=== PATIENT | female | born 1945 | race African-American/Black ===

== ENCOUNTER 2016-04-07 14:51 | Inpatient (IN) | payer MEDICARE, MEDICAID ==
[~2016-04-07] VITALS: Ht 167.6 cm; Wt 94.3 kg
[2016-04-07] MEDS ORDERED: SODIUM CHLORIDE 0.9% 500 ML IV ONE (15:29)
[2016-04-07 16:14] LABS: BASOPHILS % 0.2 % (0.0-2.0); EOSINOPHILS % 0.6 % (0.0-5.0); HEMATOCRIT. 40.1 % (36.0-48.0); HEMOGLOBIN. 13.2 g/dL (12.0-16.0); LYMPHOCYTES % 11.3 % (20.0-50.0); MEAN CORPUSCULAR HEMOGLOBIN 29.3 pg (28.0-32.0); MEAN CORPUSCULAR HGB CONC 32.8 g/dL (31.0-37.0); MEAN CORPUSCULAR VOLUME 89.5 fL (81.0-99.0); MEAN PLATELET VOLUME 9.9 fl (7.4-10.4); MONOCYTES % 7.3 % (2.0-8.0); NEUTROPHILS % 80.6 % (40.0-76.0); PLATELET 217 x1000/uL (130-400); RED BLOOD CELL COUNT 4.48 mill/uL (4.2-5.4); RED CELL DISTRIBUTION WIDTH 16.2 % (11.6-14.6); WHITE BLOOD COUNT 8.4 x1000/uL (4.5-11.0)
[2016-04-07 16:26] LABS: ALBUMIN 3.1 g/dL (3.4-5.0); ANION GAP 11; CALCIUM 9.3 mg/dL (8.5-10.1); CARBON DIOXIDE 23 mEq/L (21-32); CHLORIDE 105 mEq/L (98-107); ETHANOL BLOOD < 10 mg/dL; INDEX HEMOLYSI 3 (1-3); INDEX ICTERIC 1 (1-4); INDEX LIPEMIC 1 (1-3); UREA NITROGEN BLOOD 35 mg/dL (7-21)
[2016-04-07 16:32] LABS: eGFR 34 mL/min (>60)
[2016-04-07 16:33] LABS: ALANINE AMINOTRANSFERASE 24 IU/L (13-61); CREATINE KINASE MB FRACTION 1.3 ng/mL (0.5-3.6); NT PRO B-TYPE NATRIURETIC PEP 1016 pg/mL (5-125); TROPONIN I < 0.02 ng/mL (0.00-0.04)
[2016-04-07 16:43] LABS: INR 1.2; PROTHROMBIN TIME 12.8 sec
[2016-04-07] MEDS ORDERED: FUROSEMIDE 20MG/2ML VIAL IVP ONE (18:30)
[2016-04-07] MEDS ORDERED: LORAZEPAM 2MG/ML CPJ IV PRN (22:00)
[2016-04-07] MEDS ORDERED: IPRATROPIUM/ALBUTEROL 0.5-3(2.5)MG/3ML NEB INH PRN (22:00)
[2016-04-07] MEDS ORDERED: NA PHOS,M-B/NA PHOS,DI-BA ENEMA 118ML PR PRN (22:00)
[2016-04-07] MEDS ORDERED: HYDROCODONE/ACETAMINOPHEN 5/325MG TABLET PO PRN (22:00)
[2016-04-07] MEDS ORDERED: HYDROMORPHONE HCL/PF 2MG/ML CPJ IV PRN (22:00)
[2016-04-07] MEDS ORDERED: ENOXAPARIN 40MG/0.4ML SYR SUBCUT SCH (22:00)
[2016-04-07] MEDS ORDERED: ACETAMINOPHEN 325MG TABLET PO PRN (22:00)
[2016-04-07] MEDS ORDERED: MAGNESIUM/ALUMINUM HYDROXIDE/SIMETHICONE 30ML UDC PO PRN (22:00)
[2016-04-07] MEDS ORDERED: CLONIDINE 0.1MG TABLET PO PRN (22:00)
[2016-04-07] MEDS ORDERED: GUAIFENESIN 200MG/10ML SUGAR FREE UDC PO PRN (22:00)
[2016-04-07 23:07] LABS: CALCIUM 9.1 mg/dL (8.5-10.1)
[2016-04-07 23:33] VITALS: BP 112/73
[2016-04-08] MEDS ORDERED: ENOXAPARIN 30MG/0.3ML SYR SUBCUT SCH
[2016-04-08] MEDS ORDERED: INDA1.255 PO
[2016-04-08] MEDS ORDERED: DILTIAZEM (00:09)
[2016-04-08] MEDS ORDERED: ALDACTONE (00:09)
[2016-04-08] MEDS ORDERED: METOPROLOL (00:09)
[2016-04-08] MEDS ORDERED: ALLO100T PO (00:09)
[2016-04-08] MEDS ORDERED: ROBITUSSIN (00:09)
[2016-04-08] MEDS ORDERED: AMIODORONE (00:09)
[2016-04-08] MEDS ORDERED: CILO100T PO (00:09)
[2016-04-08] MEDS ORDERED: [UNRECOGNIZED DRUG - OTHER] (00:09)
[2016-04-08] MEDS ORDERED: LETROZOLE (00:09)
[2016-04-08] MEDS ORDERED: PANT40TA4 PO (00:11)
[2016-04-08] MEDS ORDERED: ALD50 PO (00:46)
[2016-04-08] MEDS ORDERED: METO25TA6 PO (00:50)
[2016-04-08] MEDS ORDERED: GUAI120015 PO (00:50)
[2016-04-08] MEDS ORDERED: ZOLPIDEM TARTRATE 5MG TABLET PO PRN (01:15)
[2016-04-08 04:00] VITALS: BP 124/78
[2016-04-08 06:18] LABS: BASOPHILS % 0.5 % (0.0-2.0); HEMATOCRIT. 39.1 % (36.0-48.0); HEMOGLOBIN. 12.9 g/dL (12.0-16.0); LYMPHOCYTES % 20.4 % (20.0-50.0); MEAN CORPUSCULAR HEMOGLOBIN 29.6 pg (28.0-32.0); MEAN CORPUSCULAR HGB CONC 32.9 g/dL (31.0-37.0); MEAN PLATELET VOLUME 10.3 fl (7.4-10.4); MONOCYTES % 10.2 % (2.0-8.0); NEUTROPHILS % 67.9 % (40.0-76.0); PLATELET 263 x1000/uL (130-400); RED BLOOD CELL COUNT 4.35 mill/uL (4.2-5.4); RED CELL DISTRIBUTION WIDTH 16.1 % (11.6-14.6)
[2016-04-08 06:48] LABS: ANION GAP 13; CALCIUM 9.2 mg/dL (8.5-10.1); CARBON DIOXIDE 27 mEq/L (21-32); CHLORIDE 104 mEq/L (98-107); INDEX HEMOLYSI 1 (1-3); INDEX ICTERIC 1 (1-4); INDEX LIPEMIC 1 (1-3); TRIGLYCERIDE 47 mg/dL (0-150); UREA NITROGEN BLOOD 32 mg/dL (7-21)
[2016-04-08 06:55] LABS: ALANINE AMINOTRANSFERASE 21 IU/L (13-61); HDL CHOLESTEROL 54 mg/dL (40-59); LDL CHOLESTEROL 118 mg/dL (5-100); T4 FREE 1.49 ng/dL (0.76-1.46); TROPONIN I < 0.02 ng/mL (0.00-0.04); eGFR 36 mL/min (>60)
[2016-04-08 08:00] VITALS: BP 125/74
[2016-04-08] MEDS: SPIRONOLACTONE 50MG TABLET PO SCH (08:43)
[2016-04-08] MEDS: PANTOPRAZOLE 40MG DR TABLET PO SCH (08:45)
[2016-04-08] MEDS: CILOSTAZOL 100MG TABLET PO SCH (08:45)
[2016-04-08] MEDS: METOPROLOL TARTRATE 25MG TABLET PO SCH (08:46)
[2016-04-08] MEDS: ALLOPURINOL 100 MG TABLET PO SCH ×2 (08:46→17:44)
[2016-04-08] MEDS: ASPIRIN 81MG EC TABLET PO SCH (08:47)
[2016-04-08] MEDS: INDAPAMIDE 1.25MG TABLET PO SCH (09:00)
[2016-04-08] MEDS ORDERED: GUAIFENESIN 600MG ER TABLET PO SCH (09:00)
[2016-04-08 12:00] VITALS: BP 111/62
[2016-04-08 16:00] VITALS: BP 110/62
[2016-04-08] MEDS: RIVAROXABAN 15 MG TABLET PO SCH (16:50)
[2016-04-08] MEDS: LISINOPRIL 5MG TABLET PO SCH (16:50)
[2016-04-08 20:00] VITALS: BP 112/59
[2016-04-09] VITALS (22 sets, daily range): BP systolic 87–145; BP diastolic 50–116
[2016-04-09] MEDS: LEVOTHYROXINE SODIUM 50MCG TABLET PO SCH (05:52)
[2016-04-09] MEDS ORDERED: SODIUM CHLORIDE 0.9% 100 ML IV SCH ×2 (08:42→09:00)
[2016-04-09] MEDS: INDAPAMIDE 1.25MG TABLET PO SCH ×2 (09:00→12:54)
[2016-04-09] MEDS: LISINOPRIL 5MG TABLET PO SCH ×2 (09:00→16:30)
[2016-04-09] MEDS: METOPROLOL TARTRATE 25MG TABLET PO SCH (09:00)
[2016-04-09] MEDS: SPIRONOLACTONE 50MG TABLET PO SCH (09:00)
[2016-04-09] MEDS: AMIODARONE HCL 200 MG TABLET PO SCH ×2 (09:00→09:49)
[2016-04-09] MEDS ORDERED: AMIODARONE HCL 150 MG in DEXT 5% WATER 100 ML IV ONE (09:15)
[2016-04-09] MEDS: ASPIRIN 81MG EC TABLET PO SCH (09:29)
[2016-04-09] MEDS: PANTOPRAZOLE 40MG DR TABLET PO SCH (09:29)
[2016-04-09] MEDS: ALLOPURINOL 100 MG TABLET PO SCH ×2 (09:29→16:30)
[2016-04-09] MEDS: CILOSTAZOL 100MG TABLET PO SCH (09:29)
[2016-04-09] MEDS ORDERED: DIGOXIN 500MCG/2ML AMP IV NR ×3 (10:30→19:00)
[2016-04-09] MEDS: SODIUM CHLORIDE 0.9% 1,000 ML IV SCH (11:00)
[2016-04-09] MEDS ORDERED: AMIODARONE HCL 900 MG in DEXT 5% WATER 500 ML IV SCH (16:00)
[2016-04-10] VITALS (21 sets, daily range): BP systolic 97–149; BP diastolic 33–79
[2016-04-10] MEDS: DIPHENHYDRAMINE 50MG/ML VIAL IV PRN ×2 (03:24→09:58)
[2016-04-10 06:30] LABS: BASOPHILS % 0.4 % (0.0-2.0); HEMATOCRIT. 40.2 % (36.0-48.0); HEMOGLOBIN. 13.2 g/dL (12.0-16.0); LYMPHOCYTES % 15.2 % (20.0-50.0); MEAN CORPUSCULAR HEMOGLOBIN 29.7 pg (28.0-32.0); MEAN CORPUSCULAR HGB CONC 32.9 g/dL (31.0-37.0); MEAN CORPUSCULAR VOLUME 90.3 fL (81.0-99.0); MONOCYTES % 10.9 % (2.0-8.0); NEUTROPHILS % 72.5 % (40.0-76.0); PLATELET 238 x1000/uL (130-400); RED BLOOD CELL COUNT 4.46 mill/uL (4.2-5.4); RED CELL DISTRIBUTION WIDTH 16.1 % (11.6-14.6); WHITE BLOOD COUNT 6.8 x1000/uL (4.5-11.0)
[2016-04-10] MEDS: LISINOPRIL 5MG TABLET PO SCH ×2 (09:00→17:43)
[2016-04-10] MEDS: LEVOTHYROXINE SODIUM 50MCG TABLET PO SCH (09:26)
[2016-04-10] MEDS: ALLOPURINOL 100 MG TABLET PO SCH ×2 (09:26→17:42)
[2016-04-10] MEDS: ASPIRIN 81MG EC TABLET PO SCH (09:26)
[2016-04-10] MEDS: FAMOTIDINE 20MG TABLET PO SCH (09:27)
[2016-04-10] MEDS: SPIRONOLACTONE 50MG TABLET PO SCH (09:27)
[2016-04-10] MEDS: METOPROLOL TARTRATE 25MG TABLET PO SCH (09:28)
[2016-04-10] MEDS: DOCUSATE SODIUM 100MG CAPSULE PO PRN ×2 (09:28→17:41)
[2016-04-10] MEDS: CILOSTAZOL 100MG TABLET PO SCH (09:29)
[2016-04-10] MEDS: CARVEDILOL 12.5MG TABLET PO SCH ×2 (11:45→20:23)
[2016-04-10] MEDS: SOTALOL HCL 80MG TABLET PO SCH ×2 (11:46→21:00)
[2016-04-10] MEDS: SODIUM CHLORIDE 0.9% 1,000 ML IV SCH ×2 (11:48→11:53)
[2016-04-10] MEDS ORDERED: PROMETHAZINE HCL 25MG SUPP PR PRN (13:30)
[2016-04-10 14:31] LABS: MAGNESIUM 1.9 mg/dL (1.8-2.4)
[2016-04-10] MEDS: PROMETHAZINE HCL 25MG TABLET PO PRN (17:42)
[2016-04-10] MEDS: RIVAROXABAN 15 MG TABLET PO SCH (17:42)
[2016-04-11] VITALS (12 sets, daily range): BP systolic 110–137; BP diastolic 40–81
[2016-04-11] MEDS: SODIUM CHLORIDE 0.9% 1,000 ML IV SCH ×2 (01:07→15:32)
[2016-04-11] MEDS: LEVOTHYROXINE SODIUM 50MCG TABLET PO SCH (06:08)
[2016-04-11] MEDS: FAMOTIDINE 20MG TABLET PO SCH (08:28)
[2016-04-11] MEDS: CILOSTAZOL 100MG TABLET PO SCH (08:28)
[2016-04-11] MEDS: ASPIRIN 81MG EC TABLET PO SCH (08:28)
[2016-04-11] MEDS: SPIRONOLACTONE 50MG TABLET PO SCH (08:28)
[2016-04-11] MEDS: ALLOPURINOL 100 MG TABLET PO SCH ×2 (08:28→17:31)
[2016-04-11] MEDS: INDAPAMIDE 1.25MG TABLET PO SCH ×3 (08:28→09:00)
[2016-04-11] MEDS: CARVEDILOL 12.5MG TABLET PO SCH ×2 (08:29→20:34)
[2016-04-11] MEDS: SOTALOL HCL 80MG TABLET PO SCH ×3 (08:29→20:33)
[2016-04-11] MEDS: LISINOPRIL 5MG TABLET PO SCH ×2 (08:29→17:31)
[2016-04-11] MEDS: PROMETHAZINE HCL 25MG TABLET PO PRN (11:18)
[2016-04-11] MEDS ORDERED: MAGNESIUM 2 G PREMIX 50 ML IV SCH (13:00)
[2016-04-11] MEDS: RIVAROXABAN 15 MG TABLET PO SCH (17:31)
[2016-04-11 17:46] LABS: CALCIUM 8.7 mg/dL (8.5-10.1); MAGNESIUM 2.4 mg/dL (1.8-2.4)
[2016-04-12] VITALS (12 sets, daily range): BP systolic 106–148; BP diastolic 46–79
[2016-04-12] MEDS: SODIUM CHLORIDE 0.9% 1,000 ML IV SCH ×2 (05:52→18:00)
[2016-04-12] MEDS: LEVOTHYROXINE SODIUM 50MCG TABLET PO SCH (05:58)
[2016-04-12 06:24] LABS: BASOPHILS % 0.7 % (0.0-2.0); EOSINOPHILS % 3.1 % (0.0-5.0); HEMOGLOBIN. 12.3 g/dL (12.0-16.0); LYMPHOCYTES % 19.2 % (20.0-50.0); MEAN CORPUSCULAR HEMOGLOBIN 29.9 pg (28.0-32.0); MEAN CORPUSCULAR HGB CONC 33.1 g/dL (31.0-37.0); MEAN CORPUSCULAR VOLUME 90.1 fL (81.0-99.0); MEAN PLATELET VOLUME 10.1 fl (7.4-10.4); MONOCYTES % 12.9 % (2.0-8.0); NEUTROPHILS % 64.1 % (40.0-76.0); PLATELET 233 x1000/uL (130-400); RED BLOOD CELL COUNT 4.11 mill/uL (4.2-5.4); RED CELL DISTRIBUTION WIDTH 16.4 % (11.6-14.6)
[2016-04-12 06:36] LABS: CALCIUM 8.5 mg/dL (8.5-10.1)
[2016-04-12] MEDS: DOCUSATE SODIUM 100MG CAPSULE PO PRN (08:12)
[2016-04-12] MEDS: SOTALOL HCL 80MG TABLET PO SCH ×2 (08:14→21:28)
[2016-04-12] MEDS: LISINOPRIL 5MG TABLET PO SCH ×2 (08:15→16:54)
[2016-04-12] MEDS: SPIRONOLACTONE 50MG TABLET PO SCH (08:15)
[2016-04-12] MEDS: INDAPAMIDE 1.25MG TABLET PO SCH ×2 (08:16→09:00)
[2016-04-12] MEDS: ALLOPURINOL 100 MG TABLET PO SCH ×2 (08:16→16:54)
[2016-04-12] MEDS: FAMOTIDINE 20MG TABLET PO SCH (08:16)
[2016-04-12] MEDS: CILOSTAZOL 100MG TABLET PO SCH (08:16)
[2016-04-12] MEDS: ASPIRIN 81MG EC TABLET PO SCH (08:16)
[2016-04-12] MEDS: CARVEDILOL 12.5MG TABLET PO SCH ×2 (08:16→21:28)
[2016-04-12] MEDS: RIVAROXABAN 15 MG TABLET PO SCH (16:54)
[2016-04-12] MEDS: PROMETHAZINE HCL 25MG TABLET PO PRN (20:11)
[2016-04-13] VITALS (15 sets, daily range): BP systolic 105–136; BP diastolic 50–88
[2016-04-13] MEDS: PROMETHAZINE HCL 25MG TABLET PO PRN (06:18)
[2016-04-13] MEDS: LEVOTHYROXINE SODIUM 50MCG TABLET PO SCH (06:18)
[2016-04-13] MEDS: ALLOPURINOL 100 MG TABLET PO SCH ×2 (08:37→16:48)
[2016-04-13] MEDS: ASPIRIN 81MG EC TABLET PO SCH (08:37)
[2016-04-13] MEDS: FAMOTIDINE 20MG TABLET PO SCH (08:37)
[2016-04-13] MEDS: DOCUSATE SODIUM 100MG CAPSULE PO PRN (08:37)
[2016-04-13] MEDS: LISINOPRIL 5MG TABLET PO SCH ×2 (08:37→16:48)
[2016-04-13] MEDS: SPIRONOLACTONE 50MG TABLET PO SCH (08:37)
[2016-04-13] MEDS: CILOSTAZOL 100MG TABLET PO SCH (08:38)
[2016-04-13] MEDS: CARVEDILOL 12.5MG TABLET PO SCH (08:38)
[2016-04-13] MEDS: SOTALOL HCL 80MG TABLET PO SCH (08:38)
[2016-04-13] MEDS: INDAPAMIDE 1.25MG TABLET PO SCH (08:38)
[2016-04-13] MEDS ORDERED: LIDOCAINE HCL 1% 20ML VIAL (Pyxis) INJ ONE (11:42)
[2016-04-13] MEDS ORDERED: FENTANYL CITRATE/PF 50MCG/ML 2ML VIAL ONE (11:42)
[2016-04-13] MEDS ORDERED: MIDAZOLAM HCL 2 MG/2 ML VIAL ONE (11:42)
[2016-04-13] MEDS ORDERED: PROPOFOL 200MG/20ML VIAL IV ONE (11:42)
[2016-04-13] MEDS ORDERED: ROCURONIUM BROMIDE 10MG/ML VIAL 5ML IV ONE (11:45)
[2016-04-13] MEDS ORDERED: SOTALOL HCL 80MG TABLET PO NR (15:00)
[2016-04-13] MEDS: RIVAROXABAN 15 MG TABLET PO SCH (16:48)
== END 2016-04-13 18:51 | DRG 535 ==
LOC: ER 14:58 → 5WST 17:49 → 3WST 04-09 10:15
PROVIDERS: ADMIT Specialist; ATTEND Specialist
DX: S32.9XXA Fracture of unspecified parts of lumbosacral spine and pelvis, initial encounter for closed fracture (principal); G93.40 Encephalopathy, unspecified; E46 Unspecified protein-calorie malnutrition; I42.9 Cardiomyopathy, unspecified; I13.0 Hypertensive heart and chronic kidney disease with heart failure and stage 1 through stage 4 chronic kidney disease, or unspecified chronic kidney disease; I50.30 Unspecified diastolic (congestive) heart failure; E86.0 Dehydration; E03.9 Hypothyroidism, unspecified; G89.4 Chronic pain syndrome; W17.89XA Other fall from one level to another, initial encounter; E78.5 Hyperlipidemia, unspecified; I48.0 Paroxysmal atrial fibrillation; G90.8 Other disorders of autonomic nervous system; I95.9 Hypotension, unspecified; N18.9 Chronic kidney disease, unspecified; S50.02XA Contusion of left elbow, initial encounter; Z68.33 Body mass index [BMI] 33.0-33.9, adult; Z88.0 Allergy status to penicillin; Z88.8 Allergy status to other drugs, medicaments and biological substances; Y93.89 Activity, other specified; Y92.89 Other specified places as the place of occurrence of the external cause; Y99.8 Other external cause status
CPT/HCPCS: 36415; 70450; 71010; 72125; 72170; 73080; 80048; 80053; 80061; 82553; 83735; 83880; 84439; 84443; 84484; 85025; 85610; 85730; 86850; 86900; 93005; 93306; 96361; 96374; 97116; 97162; 97530; 99285; G0482; J0282; J1160; J1200; J1650; J1940; J2060; J2250; J2704; J3010; J3475; J3490; J7030; J7040; J7060; Q0169

== ENCOUNTER 2016-04-13 19:20 | Inpatient (IN) | payer MEDICARE, MEDICAID ==
[~2016-04-13] VITALS: Ht 167.6 cm; Wt 75.7 kg
[~2016-04-13 19:20] MED LIST: ALD50 PO; ALDACTONE; ALLO100T PO; AMIODORONE; CILO100T PO; DILTIAZEM; GUAI120015 PO; INDA1.255 PO; LETROZOLE; METO25TA6 PO; METOPROLOL; PANT40TA4 PO; ROBITUSSIN; [UNRECOGNIZED DRUG - OTHER]
[2016-04-13 20:00] VITALS: BP 101/66
[2016-04-13] MEDS ORDERED: CLONIDINE 0.1MG TABLET PO PRN (20:45)
[2016-04-13] MEDS ORDERED: ACETAMINOPHEN 650MG/20.3ML UDC PO PRN (20:45)
[2016-04-13] MEDS ORDERED: GUAIFENESIN 200MG/10ML SUGAR FREE UDC PO PRN (20:45)
[2016-04-13] MEDS ORDERED: DIPHENHYDRAMINE 50MG/ML VIAL IV PRN (20:45)
[2016-04-13] MEDS ORDERED: PROMETHAZINE HCL 25MG TABLET PO PRN (20:45)
[2016-04-13] MEDS ORDERED: MAGNESIUM/ALUMINUM HYDROXIDE/SIMETHICONE 30ML UDC PO PRN (20:45)
[2016-04-13] MEDS: SODIUM CHLORIDE 0.9% 1,000 ML IV SCH (20:45)
[2016-04-13] MEDS ORDERED: DOCUSATE SODIUM 100MG CAPSULE PO PRN (20:45)
[2016-04-13] MEDS ORDERED: NA PHOS,M-B/NA PHOS,DI-BA ENEMA 118ML PR PRN (20:45)
[2016-04-13] MEDS: LISINOPRIL 5MG TABLET PO SCH (21:00)
[2016-04-13] MEDS: CARVEDILOL 12.5MG TABLET PO SCH (21:00)
[2016-04-13] MEDS ORDERED: PROMETHAZINE HCL 25MG SUPP PR PRN (22:30)
[2016-04-13] MEDS: SOTALOL HCL 80MG TABLET PO SCH (22:30)
[2016-04-13] MEDS: IPRATROPIUM/ALBUTEROL 0.5-3(2.5)MG/3ML NEB HHN SCH (23:46)
[2016-04-14 00:07] VITALS: BP 104/51
[2016-04-14] MEDS: IPRATROPIUM/ALBUTEROL 0.5-3(2.5)MG/3ML NEB HHN SCH ×5 (03:59→20:44)
[2016-04-14] MEDS: LEVOTHYROXINE SODIUM 50MCG TABLET PO SCH (06:34)
[2016-04-14 08:00] VITALS: BP 125/70
[2016-04-14] MEDS: FAMOTIDINE 20MG/2ML VIAL IV SCH (08:39)
[2016-04-14] MEDS: CILOSTAZOL 100MG TABLET PO SCH (08:40)
[2016-04-14] MEDS: CARVEDILOL 12.5MG TABLET PO SCH ×2 (08:40→21:42)
[2016-04-14] MEDS: DOCUSATE SODIUM 100MG CAPSULE PO SCH ×2 (08:40→17:18)
[2016-04-14] MEDS: SPIRONOLACTONE 50MG TABLET PO SCH (08:41)
[2016-04-14] MEDS: ASPIRIN 81MG EC TABLET PO SCH (08:41)
[2016-04-14] MEDS: ALLOPURINOL 100 MG TABLET PO SCH ×2 (08:41→17:19)
[2016-04-14] MEDS: SOTALOL HCL 80MG TABLET PO SCH ×2 (08:41→21:42)
[2016-04-14] MEDS: AMIODARONE HCL 200 MG TABLET PO SCH (08:42)
[2016-04-14] MEDS: LISINOPRIL 5MG TABLET PO SCH ×2 (08:42→21:43)
[2016-04-14] MEDS: INDAPAMIDE 1.25MG TABLET PO SCH (09:56)
[2016-04-14] MEDS: RIVAROXABAN 15 MG TABLET PO SCH (17:18)
[2016-04-14 20:00] VITALS: BP 117/63
[2016-04-14] MEDS: SODIUM CHLORIDE 0.9% 1,000 ML IV SCH ×2 (20:25→23:25)
[2016-04-15] MEDS: IPRATROPIUM/ALBUTEROL 0.5-3(2.5)MG/3ML NEB HHN SCH ×6 (00:33→20:53)
[2016-04-15] MEDS: LEVOTHYROXINE SODIUM 50MCG TABLET PO SCH (06:40)
[2016-04-15] MEDS: FAMOTIDINE 20MG/2ML VIAL IV SCH (07:58)
[2016-04-15 08:00] VITALS: BP 138/69
[2016-04-15] MEDS: DOCUSATE SODIUM 100MG CAPSULE PO SCH ×2 (08:01→17:16)
[2016-04-15] MEDS: SOTALOL HCL 80MG TABLET PO SCH ×2 (08:01→21:00)
[2016-04-15] MEDS: SPIRONOLACTONE 50MG TABLET PO SCH (08:02)
[2016-04-15] MEDS: ALLOPURINOL 100 MG TABLET PO SCH ×2 (08:02→17:17)
[2016-04-15] MEDS: CILOSTAZOL 100MG TABLET PO SCH (08:02)
[2016-04-15] MEDS: LISINOPRIL 5MG TABLET PO SCH ×2 (08:02→21:00)
[2016-04-15] MEDS: ASPIRIN 81MG EC TABLET PO SCH (08:02)
[2016-04-15] MEDS: AMIODARONE HCL 200 MG TABLET PO SCH (08:02)
[2016-04-15] MEDS: CARVEDILOL 12.5MG TABLET PO SCH ×2 (08:02→21:00)
[2016-04-15] MEDS: INDAPAMIDE 1.25MG TABLET PO SCH (08:06)
[2016-04-15] MEDS: RIVAROXABAN 15 MG TABLET PO SCH (17:17)
[2016-04-15 20:00] VITALS: BP 110/59
[2016-04-15 21:04] LABS: CLARITY URINE CLEAR (CLEAR); COLOR URINE YELLOW (YELLOW); GLUCOSE URINE NEGATIVE (NEGATIVE); KETONES URINE NEGATIVE (NEGATIVE); LEUKOCYTE ESTERASE URINE NEGATIVE (NEGATIVE); NITRITE URINE NEGATIVE (NEGATIVE); OCCULT BLOOD URINE NEGATIVE (NEGATIVE); PH URINE 5.5 (4.5-8.0); PROTEIN URINE NEGATIVE (NEGATIVE); SPECIFIC GRAVITY URINE 1.009 (1.005-1.030)
[2016-04-15] MEDS: SODIUM CHLORIDE 0.9% 1,000 ML IV SCH (23:25)
[2016-04-16] MEDS: IPRATROPIUM/ALBUTEROL 0.5-3(2.5)MG/3ML NEB HHN SCH ×6 (00:33→21:13)
[2016-04-16] MEDS: LEVOTHYROXINE SODIUM 50MCG TABLET PO SCH (06:37)
[2016-04-16 08:00] VITALS: BP 136/77
[2016-04-16] MEDS: LISINOPRIL 5MG TABLET PO SCH ×2 (09:00→21:00)
[2016-04-16] MEDS: CILOSTAZOL 100MG TABLET PO SCH (09:19)
[2016-04-16] MEDS: DOCUSATE SODIUM 100MG CAPSULE PO SCH ×2 (09:19→16:56)
[2016-04-16] MEDS: ALLOPURINOL 100 MG TABLET PO SCH ×2 (09:19→16:56)
[2016-04-16] MEDS: ASPIRIN 81MG EC TABLET PO SCH (09:19)
[2016-04-16] MEDS: SOTALOL HCL 80MG TABLET PO SCH (09:20)
[2016-04-16] MEDS: AMIODARONE HCL 200 MG TABLET PO SCH (09:21)
[2016-04-16] MEDS: SPIRONOLACTONE 50MG TABLET PO SCH (09:21)
[2016-04-16] MEDS: CARVEDILOL 12.5MG TABLET PO SCH ×2 (09:21→21:00)
[2016-04-16 13:42] VITALS: BP 111/60
[2016-04-16 16:31] VITALS: BP 120/68
[2016-04-16] MEDS: INDAPAMIDE 1.25MG TABLET PO SCH (16:54)
[2016-04-16] MEDS: RIVAROXABAN 15 MG TABLET PO SCH (16:54)
[2016-04-16 20:00] VITALS: BP 101/58
[2016-04-16] MEDS: FAMOTIDINE 20MG TABLET PO SCH (21:44)
[2016-04-17] MEDS: IPRATROPIUM/ALBUTEROL 0.5-3(2.5)MG/3ML NEB HHN SCH ×6 (00:02→21:34)
[2016-04-17] MEDS: LEVOTHYROXINE SODIUM 50MCG TABLET PO SCH (06:14)
[2016-04-17 07:38] LABS: BASOPHILS % 0.7 % (0.0-2.0); EOSINOPHILS % 3.2 % (0.0-5.0); HEMATOCRIT. 37.8 % (36.0-48.0); HEMOGLOBIN. 12.5 g/dL (12.0-16.0); LYMPHOCYTES % 21.1 % (20.0-50.0); MEAN CORPUSCULAR HEMOGLOBIN 29.4 pg (28.0-32.0); MEAN CORPUSCULAR HGB CONC 33.1 g/dL (31.0-37.0); MEAN CORPUSCULAR VOLUME 88.7 fL (81.0-99.0); MEAN PLATELET VOLUME 9.9 fl (7.4-10.4); MONOCYTES % 11.8 % (2.0-8.0); NEUTROPHILS % 63.2 % (40.0-76.0); PLATELET 201 x1000/uL (130-400); RED BLOOD CELL COUNT 4.26 mill/uL (4.2-5.4); RED CELL DISTRIBUTION WIDTH 16.4 % (11.6-14.6); WHITE BLOOD COUNT 5.5 x1000/uL (4.5-11.0)
[2016-04-17 08:00] VITALS: BP 135/79
[2016-04-17 08:33] LABS: ALANINE AMINOTRANSFERASE 20 IU/L (13-61); ALBUMIN 2.6 g/dL (3.4-5.0); ANION GAP 12; CALCIUM 8.8 mg/dL (8.5-10.1); CARBON DIOXIDE 26 mEq/L (21-32); CHLORIDE 106 mEq/L (98-107); INDEX HEMOLYSI 1 (1-3); INDEX ICTERIC 1 (1-4); INDEX LIPEMIC 1 (1-3); UREA NITROGEN BLOOD 13 mg/dL (7-21); eGFR 54 mL/min (>60)
[2016-04-17] MEDS: LISINOPRIL 5MG TABLET PO SCH ×2 (09:00→21:00)
[2016-04-17] MEDS: CARVEDILOL 12.5MG TABLET PO SCH ×2 (09:41→22:02)
[2016-04-17] MEDS: DOCUSATE SODIUM 100MG CAPSULE PO SCH ×2 (09:41→18:14)
[2016-04-17] MEDS: SPIRONOLACTONE 25MG TABLET PO SCH (09:41)
[2016-04-17] MEDS: SOTALOL HCL 80MG TABLET PO SCH ×2 (09:42→22:02)
[2016-04-17] MEDS: CILOSTAZOL 100MG TABLET PO SCH (09:42)
[2016-04-17] MEDS: ASPIRIN 81MG EC TABLET PO SCH (09:42)
[2016-04-17] MEDS: AMIODARONE HCL 200 MG TABLET PO SCH (09:42)
[2016-04-17] MEDS: INDAPAMIDE 1.25MG TABLET PO SCH (09:42)
[2016-04-17] MEDS: ALLOPURINOL 100 MG TABLET PO SCH ×2 (09:42→18:14)
[2016-04-17] MEDS: RIVAROXABAN 15 MG TABLET PO SCH (18:14)
[2016-04-17 20:41] VITALS: BP 137/84
[2016-04-17] MEDS: FAMOTIDINE 20MG TABLET PO SCH (22:02)
[2016-04-18] MEDS: IPRATROPIUM/ALBUTEROL 0.5-3(2.5)MG/3ML NEB HHN SCH ×6 (00:43→20:03)
[2016-04-18] MEDS: LEVOTHYROXINE SODIUM 50MCG TABLET PO SCH (06:48)
[2016-04-18 08:00] VITALS: BP_SYST 97; BP_SYST 98; BP_DIAS 56; BP_DIAS 58; BP_DIAS 64
[2016-04-18] MEDS: LISINOPRIL 5MG TABLET PO SCH ×2 (09:00→21:00)
[2016-04-18] MEDS: INDAPAMIDE 1.25MG TABLET PO SCH (09:00)
[2016-04-18] MEDS: SPIRONOLACTONE 25MG TABLET PO SCH (09:00)
[2016-04-18] MEDS: SOTALOL HCL 80MG TABLET PO SCH (09:00)
[2016-04-18] MEDS: CARVEDILOL 12.5MG TABLET PO SCH ×2 (09:00→21:00)
[2016-04-18] MEDS: ALLOPURINOL 100 MG TABLET PO SCH ×2 (09:31→17:36)
[2016-04-18] MEDS: CILOSTAZOL 100MG TABLET PO SCH (09:31)
[2016-04-18] MEDS: AMIODARONE HCL 200 MG TABLET PO SCH (09:31)
[2016-04-18] MEDS: DOCUSATE SODIUM 100MG CAPSULE PO SCH ×2 (09:31→17:37)
[2016-04-18] MEDS: ASPIRIN 81MG EC TABLET PO SCH (09:31)
[2016-04-18 16:30] VITALS: BP 92/54
[2016-04-18] MEDS: RIVAROXABAN 15 MG TABLET PO SCH (17:36)
[2016-04-18 20:34] VITALS: BP 100/76
[2016-04-18] MEDS: FAMOTIDINE 20MG TABLET PO SCH (22:08)
[2016-04-19] MEDS: IPRATROPIUM/ALBUTEROL 0.5-3(2.5)MG/3ML NEB HHN SCH ×7 (00:11→23:47)
[2016-04-19] MEDS: LEVOTHYROXINE SODIUM 50MCG TABLET PO SCH (06:24)
[2016-04-19 08:00] VITALS: BP 104/72
[2016-04-19] MEDS: AMIODARONE HCL 200 MG TABLET PO SCH (08:51)
[2016-04-19] MEDS: CARVEDILOL 12.5MG TABLET PO SCH ×2 (08:52→22:23)
[2016-04-19] MEDS: CILOSTAZOL 100MG TABLET PO SCH (08:52)
[2016-04-19] MEDS: DOCUSATE SODIUM 100MG CAPSULE PO SCH ×2 (08:52→17:14)
[2016-04-19] MEDS: SPIRONOLACTONE 25MG TABLET PO SCH (08:52)
[2016-04-19] MEDS: ASPIRIN 81MG EC TABLET PO SCH (08:53)
[2016-04-19] MEDS: LISINOPRIL 5MG TABLET PO SCH ×2 (08:53→22:22)
[2016-04-19] MEDS: INDAPAMIDE 1.25MG TABLET PO SCH (08:53)
[2016-04-19] MEDS: ALLOPURINOL 100 MG TABLET PO SCH ×2 (08:54→17:14)
[2016-04-19] MEDS: RIVAROXABAN 15 MG TABLET PO SCH (17:14)
[2016-04-19 20:00] VITALS: BP 140/66
[2016-04-19] MEDS: FAMOTIDINE 20MG TABLET PO SCH (22:21)
[2016-04-20] MEDS: IPRATROPIUM/ALBUTEROL 0.5-3(2.5)MG/3ML NEB HHN SCH ×3 (03:04→12:16)
[2016-04-20] MEDS: LEVOTHYROXINE SODIUM 50MCG TABLET PO SCH (06:43)
[2016-04-20 08:00] VITALS: BP 102/57
[2016-04-20] MEDS: AMIODARONE HCL 200 MG TABLET PO SCH (08:21)
[2016-04-20] MEDS: CARVEDILOL 12.5MG TABLET PO SCH (08:21)
[2016-04-20] MEDS: ALLOPURINOL 100 MG TABLET PO SCH (08:22)
[2016-04-20] MEDS: SPIRONOLACTONE 25MG TABLET PO SCH (08:22)
[2016-04-20] MEDS: CILOSTAZOL 100MG TABLET PO SCH (08:22)
[2016-04-20] MEDS: DOCUSATE SODIUM 100MG CAPSULE PO SCH (08:22)
[2016-04-20] MEDS: INDAPAMIDE 1.25MG TABLET PO SCH (08:22)
[2016-04-20] MEDS: ASPIRIN 81MG EC TABLET PO SCH (08:23)
[2016-04-20] MEDS: LISINOPRIL 5MG TABLET PO SCH (08:23)
[2016-04-20 14:53] VITALS: BP 102/57
== END 2016-04-20 15:30 | disposition home or self-care (01) | DRG 536 ==
PROVIDERS: ADMIT Psychiatry & Neurology Neurology; ATTEND Specialist
DX: S32.89XA Fracture of other parts of pelvis, initial encounter for closed fracture (principal); E46 Unspecified protein-calorie malnutrition; I42.9 Cardiomyopathy, unspecified; I50.30 Unspecified diastolic (congestive) heart failure; I13.0 Hypertensive heart and chronic kidney disease with heart failure and stage 1 through stage 4 chronic kidney disease, or unspecified chronic kidney disease; W18.30XA Fall on same level, unspecified, initial encounter; E03.9 Hypothyroidism, unspecified; E78.5 Hyperlipidemia, unspecified; I48.91 Unspecified atrial fibrillation; I73.9 Peripheral vascular disease, unspecified; I48.0 Paroxysmal atrial fibrillation; M10.9 Gout, unspecified; N18.9 Chronic kidney disease, unspecified; R62.7 Adult failure to thrive; Z83.3 Family history of diabetes mellitus; Z82.49 Family history of ischemic heart disease and other diseases of the circulatory system
CPT/HCPCS: 36415; 80053; 81003; 85025; 92523; 93970; 94640; 94664; 97110; 97116; 97150; 97162; 97166; 97530; 97532; 97535; J3490; J7030; J7620; Q0169

== ENCOUNTER 2017-11-29 16:49 | Emergency (ER) | payer MEDICARE, MEDICAID ==
[~2017-11-29] VITALS: Ht 170.2 cm; Wt 97.0 kg
[~2017-11-29 16:49] MED LIST changes: -ALDACTONE; -AMIODORONE; -DILTIAZEM; -GUAI120015 PO; -METO25TA6 PO; -METOPROLOL; -ROBITUSSIN
[2017-11-30 00:48] VITALS: BP 111/61
== END 2017-11-30 00:54 | disposition home or self-care (01) ==
LOC: ER 16:49
DX: B36.9 Superficial mycosis, unspecified (principal); I11.0 Hypertensive heart disease with heart failure; I50.9 Heart failure, unspecified; I48.91 Unspecified atrial fibrillation; Z79.01 Long term (current) use of anticoagulants; Z88.0 Allergy status to penicillin
CPT/HCPCS: 99283

== ENCOUNTER 2018-08-14 07:58 | Inpatient (IN) | payer MEDICARE, MEDICAID ==
[~2018-08-14] VITALS: Ht 170.2 cm; Wt 90.7 kg
[2018-08-14] VITALS (8 sets, daily range): BP systolic 95–111; BP diastolic 44–72
[2018-08-14] MEDS ORDERED: ONDANSETRON HCL 4MG/2ML INJ IV ONE (08:30)
[2018-08-14] MEDS ORDERED: IPRATROPIUM BROMIDE (0.02%) 0.5MG/2.5ML NEB HHN STA (09:06)
[2018-08-14] MEDS ORDERED: ALBUTEROL (0.083%) 2.5MG/3ML NEB HHN STA (09:06)
[2018-08-14] MEDS ORDERED: DILTIAZEM HCL 5MG/ML 5ML VIAL IV ONE (09:15)
[2018-08-14] MEDS ORDERED: DILTIAZEM HCL 125 MG in DEXT 5% WATER 100 ML IV ONE (09:30)
[2018-08-14 09:31] LABS: HEMATOCRIT. 39.6 % (36.0-48.0); MEAN CORPUSCULAR HEMOGLOBIN 30.5 pg (28.0-32.0); MEAN CORPUSCULAR VOLUME 92.8 fL (81.0-99.0); RED BLOOD CELL COUNT 4.27 mill/uL (4.2-5.4); RED CELL DISTRIBUTION WIDTH 17.9 % (11.6-14.6)
[2018-08-14 09:34] LABS: CHLORIDE 109 mEq/L (98-107)
[2018-08-14 09:53] LABS: INR 1.4; PARTIAL THROMBOPLASTIN TIME 42.6 sec (23.4-31.0); PROTHROMBIN TIME 13.8 sec (9.6-11.0)
[2018-08-14] MEDS ORDERED: DILTIAZEM HCL 125 MG in DEXT 5% WATER 100 ML IV NR (10:00)
[2018-08-14 10:10] LABS: PLATELET ESTIMATE NORMAL
[2018-08-14 10:11] LABS: PLATELET 157 x1000/uL (130-400)
[2018-08-14] MEDS ORDERED: LIDOCAINE HCL 1% 20ML VIAL (Pyxis) INJ ONE (10:20)
[2018-08-14] MEDS ORDERED: SODIUM BICARBONATE 8.4% 1 MEQ/ML 50ML SYR IV ONE (10:30)
[2018-08-14] MEDS ORDERED: IPRATROPIUM/ALBUTEROL 0.5-3(2.5)MG/3ML NEB INH PRN (13:15)
[2018-08-14] MEDS ORDERED: CLONIDINE 0.1MG TABLET PO PRN (13:15)
[2018-08-14] MEDS ORDERED: DIPHENHYDRAMINE 50MG/ML VIAL IV PRN (13:15)
[2018-08-14] MEDS ORDERED: ACETAMINOPHEN 325MG TABLET PO PRN (13:15)
[2018-08-14] MEDS ORDERED: DEXT 5%/0.45% NACL 500ML 500 ML IV NR (14:59)
[2018-08-14] MEDS ORDERED: LEVOFLOXACIN 500MG PREMIX 100 ML IV SCH (16:00)
[2018-08-14] MEDS ORDERED: DILTIAZEM HCL 125 MG in DEXT 5% WATER 100 ML IV PRN (16:00)
[2018-08-14] MEDS: ENOXAPARIN 100MG/ML SYR SUBCUT SCH (16:51)
[2018-08-14] MEDS: GUAIFENESIN 200MG/10ML SUGAR FREE UDC PO PRN ×2 (18:25→21:16)
[2018-08-14] MEDS: PROCHLORPERAZINE 10MG/2ML VIAL IV PRN ×2 (18:25→23:11)
[2018-08-14] MEDS ORDERED: ALBUTEROL (0.083%) 2.5MG/3ML NEB HHN PRN (21:00)
[2018-08-14] MEDS: FAMOTIDINE 20MG/2ML VIAL IV SCH (21:17)
[2018-08-14] MEDS ORDERED: FUROSEMIDE 40MG/4ML VIAL IVP NR (22:15)
[2018-08-15] VITALS (11 sets, daily range): BP systolic 91–126; BP diastolic 51–97
[2018-08-15] MEDS: ALBUTEROL (0.083%) 2.5MG/3ML NEB HHN SCH ×6 (00:39→21:34)
[2018-08-15] MEDS: AZITHROMYCIN 500 MG in DEXT 5% WATER 250 ML IV SCH (01:22)
[2018-08-15 07:41] LABS: BASOPHILS % 0.2 % (0.0-2.0); HEMATOCRIT. 38.3 % (36.0-48.0); HEMOGLOBIN. 12.8 g/dL (12.0-16.0); LYMPHOCYTES % 10.5 % (20.0-50.0); MEAN CORPUSCULAR HEMOGLOBIN 30.5 pg (28.0-32.0); MEAN PLATELET VOLUME 10.3 fl (7.4-10.4); MONOCYTES % 8.5 % (2.0-8.0); NEUTROPHILS % 80.8 % (40.0-76.0); PLATELET 174 x1000/uL (130-400); RED BLOOD CELL COUNT 4.21 mill/uL (4.2-5.4); RED CELL DISTRIBUTION WIDTH 17.2 % (11.6-14.6)
[2018-08-15] MEDS: ALLOPURINOL 100 MG TABLET PO SCH (08:18)
[2018-08-15] MEDS: LETROZOLE 2.5MG TABLET PO SCH (08:19)
[2018-08-15 08:35] LABS: CHLORIDE 103 mEq/L (98-107)
[2018-08-15] MEDS ORDERED: FUROSEMIDE 40MG/4ML VIAL IVP SCH (09:00)
[2018-08-15] MEDS: GUAIFENESIN 200MG/10ML SUGAR FREE UDC PO PRN (11:08)
[2018-08-15] MEDS: DILTIAZEM HCL 120MG CAPSULE CD 24HR PO SCH ×2 (12:37→21:03)
[2018-08-15] MEDS: LEVOFLOXACIN 250MG PREMIX 50 ML IV SCH (15:24)
[2018-08-15] MEDS: ENOXAPARIN 100MG/ML SYR SUBCUT SCH (16:38)
[2018-08-15 19:33] LABS: BG BASE EXCESS -4.6 mmol/L (-2.0-2.0); BG CARBOXYHEMOGLOBIN 0.2 % (0.5-1.5); BG DEOXYHEMOGLOBIN 6.5 % (0.0-5.0); BG FRACTION INSPIRED OXYGEN 28; BG HCO3 ACT 16.1 mmol/L (22.0-26.0); BG METHEMOGLOBIN 0.2 % (0.0-1.5); BG OXYGEN SATURATION 93.5 % (92.0-98.5); BG OXYHEMOGLOBIN 93.1 % (94.0-97.0); BG PCO2 20.7 mmHg (35.0-45.0); BG PO2 64.4 mmHg (75.0-100.0); BG SAMPLE SITE RIGHT RADIAL; BG TOTAL HEMOGLOBIN 13.5 g/dL (12.0-18.0); BG VENT MODE NASAL CANNULA
[2018-08-15] MEDS ORDERED: DIGOXIN 500MCG/2ML AMP IV NR (20:45)
[2018-08-15] MEDS: FAMOTIDINE 20MG/2ML VIAL IV SCH (21:03)
[2018-08-15] MEDS: GUAIFENESIN 600MG ER TABLET PO SCH (21:04)
[2018-08-15 21:48] LABS: CHLORIDE 100 mEq/L (98-107)
[2018-08-15] MEDS ORDERED: DIGOXIN 500MCG/2ML AMP IV SCH (22:30)
[2018-08-16] VITALS (13 sets, daily range): BP systolic 90–119; BP diastolic 37–83
[2018-08-16] MEDS: AZITHROMYCIN 500 MG in DEXT 5% WATER 250 ML IV SCH (00:48)
[2018-08-16] MEDS: ALBUTEROL (0.083%) 2.5MG/3ML NEB HHN SCH ×6 (01:47→21:34)
[2018-08-16] MEDS ORDERED: LORAZEPAM 2MG/ML CPJ IV PRN (02:15)
[2018-08-16] MEDS: GUAIFENESIN 600MG ER TABLET PO SCH ×2 (08:19→22:31)
[2018-08-16] MEDS: ALLOPURINOL 100 MG TABLET PO SCH (08:19)
[2018-08-16] MEDS: FUROSEMIDE 40MG/4ML VIAL IVP SCH ×2 (08:19→17:00)
[2018-08-16] MEDS: LETROZOLE 2.5MG TABLET PO SCH (08:19)
[2018-08-16] MEDS ORDERED: MAGNESIUM 2 G PREMIX 50 ML IV NR (09:00)
[2018-08-16] MEDS ORDERED: DIGOXIN 500MCG/2ML AMP IV NR ×3 (09:00→16:30)
[2018-08-16] MEDS: DILTIAZEM HCL 120MG CAPSULE CD 24HR PO SCH (12:00)
[2018-08-16 12:36] LABS: BASOPHILS % 0.1 % (0.0-2.0); HEMATOCRIT. 37.3 % (36.0-48.0); HEMOGLOBIN. 12.6 g/dL (12.0-16.0); LYMPHOCYTES % 8.2 % (20.0-50.0); MEAN CORPUSCULAR HEMOGLOBIN 30.3 pg (28.0-32.0); MEAN CORPUSCULAR VOLUME 89.9 fL (81.0-99.0); MEAN PLATELET VOLUME 10.5 fl (7.4-10.4); MONOCYTES % 10.1 % (2.0-8.0); NEUTROPHILS % 81.6 % (40.0-76.0); PLATELET 165 x1000/uL (130-400); RED BLOOD CELL COUNT 4.15 mill/uL (4.2-5.4)
[2018-08-16 13:33] LABS: HEPATITIS B SURFACE AB < 3.1 mIU/mL
[2018-08-16] MEDS: LEVOFLOXACIN 250MG PREMIX 50 ML IV SCH (16:00)
[2018-08-16] MEDS: ENOXAPARIN 100MG/ML SYR SUBCUT SCH (17:00)
[2018-08-16] MEDS: QUETIAPINE FUMARATE 25MG TABLET PO SCH (21:00)
[2018-08-16] MEDS: FAMOTIDINE 20MG/2ML VIAL IV SCH (22:31)
[2018-08-17] VITALS (12 sets, daily range): BP systolic 90–121; BP diastolic 40–83
[2018-08-17] MEDS: ALBUTEROL (0.083%) 2.5MG/3ML NEB HHN SCH ×6 (00:48→20:21)
[2018-08-17] MEDS: AZITHROMYCIN 500 MG in DEXT 5% WATER 250 ML IV SCH (01:41)
[2018-08-17] MEDS: DILTIAZEM HCL 120MG CAPSULE CD 24HR PO SCH ×2 (01:41→12:00)
[2018-08-17] MEDS: ALLOPURINOL 100 MG TABLET PO SCH (09:00)
[2018-08-17] MEDS: GUAIFENESIN 600MG ER TABLET PO SCH ×2 (09:00→22:13)
[2018-08-17] MEDS: LETROZOLE 2.5MG TABLET PO SCH (09:00)
[2018-08-17] MEDS: FUROSEMIDE 40MG/4ML VIAL IVP SCH ×2 (09:00→17:45)
[2018-08-17 09:10] LABS: ANTI-NUCLEAR ANTIBODIES DIRECT Negative (Negative)
[2018-08-17] MEDS: LEVOFLOXACIN 250MG PREMIX 50 ML IV SCH (15:46)
[2018-08-17] MEDS ORDERED: SORBITOL 70% SOLN 30ML PO NR (16:30)
[2018-08-17] MEDS ORDERED: BISACODYL 10MG SUPP PR NR (16:30)
[2018-08-17] MEDS ORDERED: BISACODYL 10MG SUPP PR PRN (16:30)
[2018-08-17 17:31] LABS: CLARITY URINE CLEAR (CLEAR); COLOR URINE YELLOW (YELLOW); KETONES URINE NEGATIVE (NEGATIVE); LEUKOCYTE ESTERASE URINE TRACE (NEGATIVE); NITRITE URINE NEGATIVE (NEGATIVE); OCCULT BLOOD URINE 3+ (NEGATIVE); PROTEIN URINE NEGATIVE (NEGATIVE); UROBILINOGEN URINE 0.2 E.U./dL (0.2-1.0)
[2018-08-17] MEDS: DIGOXIN 125MCG TABLET PO SCH (17:44)
[2018-08-17] MEDS: ENOXAPARIN 100MG/ML SYR SUBCUT SCH (17:45)
[2018-08-17] MEDS: QUETIAPINE FUMARATE 25MG TABLET PO SCH (21:00)
[2018-08-17] MEDS: FAMOTIDINE 20MG/2ML VIAL IV SCH (22:13)
[2018-08-18] VITALS (11 sets, daily range): BP systolic 99–126; BP diastolic 48–82
[2018-08-18] MEDS: AZITHROMYCIN 500 MG in DEXT 5% WATER 250 ML IV SCH (01:27)
[2018-08-18] MEDS: DILTIAZEM HCL 120MG CAPSULE CD 24HR PO SCH ×2 (01:27→12:23)
[2018-08-18] MEDS: ALBUTEROL (0.083%) 2.5MG/3ML NEB HHN SCH ×6 (02:11→20:38)
[2018-08-18] MEDS ORDERED: ONDANSETRON HCL 4MG/2ML INJ IV PRN (03:15)
[2018-08-18] MEDS: METOCLOPRAMIDE HCL 10MG/2ML VIAL IV PRN ×2 (03:25→15:34)
[2018-08-18] MEDS: FUROSEMIDE 40MG/4ML VIAL IVP SCH ×2 (08:41→16:09)
[2018-08-18] MEDS: ALLOPURINOL 100 MG TABLET PO SCH (08:41)
[2018-08-18] MEDS: LETROZOLE 2.5MG TABLET PO SCH (08:41)
[2018-08-18 10:11] LABS: ANTI-PROTEINASE 3 ABS < 3.5 U/mL (0.0-3.5)
[2018-08-18] MEDS: GUAIFENESIN 600MG ER TABLET PO SCH ×2 (10:35→22:23)
[2018-08-18 13:15] LABS: ANTI-MYELOPEROXIDASE AB < 9.0 U/mL (0.0-9.0)
[2018-08-18 15:27] LABS: ATYPICAL P-ANCA <1:20 titer (Neg:<1:20); CYTOPLASMIC C-ANCA <1:20 titer (Neg:<1:20); PERINUCLEAR P-ANCA <1:20 titer (Neg:<1:20)
[2018-08-18] MEDS: LEVOFLOXACIN 250MG PREMIX 50 ML IV SCH (15:28)
[2018-08-18] MEDS: ENOXAPARIN 100MG/ML SYR SUBCUT SCH (16:10)
[2018-08-18] MEDS: DIGOXIN 125MCG TABLET PO SCH (17:06)
[2018-08-18] MEDS: FAMOTIDINE 20MG/2ML VIAL IV SCH (22:23)
[2018-08-18] MEDS: QUETIAPINE FUMARATE 25MG TABLET PO SCH (22:24)
[2018-08-19] VITALS (11 sets, daily range): BP systolic 72–138; BP diastolic 40–71
[2018-08-19] MEDS: DILTIAZEM HCL 120MG CAPSULE CD 24HR PO SCH ×2 (00:06→12:56)
[2018-08-19] MEDS: AZITHROMYCIN 500 MG in DEXT 5% WATER 250 ML IV SCH (00:07)
[2018-08-19] MEDS: ALBUTEROL (0.083%) 2.5MG/3ML NEB HHN SCH ×6 (00:50→21:02)
[2018-08-19 07:45] LABS: HEMATOCRIT 41.1 % (36.0-48.0); HEMOGLOBIN 13.7 g/dL (12.0-16.0); MEAN CORPUSCULAR HEMOGLOBIN 30.2 pg (28.0-32.0); MEAN CORPUSCULAR VOLUME 90.6 fL (81.0-99.0); PLATELET 185 x1000/uL (130-400); RED BLOOD CELL COUNT 4.54 mill/uL (4.2-5.4); RED CELL DISTRIBUTION WIDTH 16.7 % (11.6-14.6)
[2018-08-19 08:08] LABS: PHOSPHORUS 4.7 mg/dL (2.5-4.9)
[2018-08-19] MEDS: ALLOPURINOL 100 MG TABLET PO SCH (08:28)
[2018-08-19] MEDS: FUROSEMIDE 40MG/4ML VIAL IVP SCH ×2 (08:28→10:36)
[2018-08-19] MEDS: LETROZOLE 2.5MG TABLET PO SCH (08:28)
[2018-08-19] MEDS: GUAIFENESIN 600MG ER TABLET PO SCH ×2 (08:28→21:22)
[2018-08-19] MEDS: DIGOXIN 125MCG TABLET PO SCH (17:01)
[2018-08-19] MEDS: ENOXAPARIN 100MG/ML SYR SUBCUT SCH (17:01)
[2018-08-19] MEDS: LEVOFLOXACIN 250MG PREMIX 50 ML IV SCH (17:02)
[2018-08-19] MEDS: METOCLOPRAMIDE HCL 10MG/2ML VIAL IV PRN (18:31)
[2018-08-19] MEDS ORDERED: SODIUM CHLORIDE 0.9% 500 ML IV ONE (20:45)
[2018-08-19] MEDS: QUETIAPINE FUMARATE 25MG TABLET PO SCH (21:22)
[2018-08-20] VITALS (7 sets, daily range): BP systolic 96–111; BP diastolic 45–62
[2018-08-20] MEDS: ALBUTEROL (0.083%) 2.5MG/3ML NEB HHN SCH ×4 (00:45→11:11)
[2018-08-20] MEDS: AZITHROMYCIN 500 MG in DEXT 5% WATER 250 ML IV SCH (01:07)
[2018-08-20] MEDS ORDERED: DILTIAZEM HCL 120MG CAPSULE CD 24HR PO SCH (09:00)
[2018-08-20] MEDS: ALLOPURINOL 100 MG TABLET PO SCH (09:17)
[2018-08-20] MEDS: GUAIFENESIN 600MG ER TABLET PO SCH (09:17)
[2018-08-20] MEDS: LETROZOLE 2.5MG TABLET PO SCH (09:50)
[2018-08-20] MEDS: LEVOFLOXACIN 250MG PREMIX 50 ML IV SCH (16:07)
[2018-08-20] MEDS: ENOXAPARIN 100MG/ML SYR SUBCUT SCH (16:08)
[2018-08-21] MEDS ORDERED: PANT40TA4 MT (18:30)
[2018-08-21] MEDS ORDERED: SPIR50TA5 MT (18:30)
[2018-08-21] MEDS ORDERED: CRES10 MT (18:30)
[2018-08-21] MEDS ORDERED: LETR2.5T6 MT (18:30)
[2018-08-21] MEDS ORDERED: INDA1.255 MT (18:30)
[2018-08-21] MEDS ORDERED: CILO100T MT (18:30)
[2018-08-21] MEDS ORDERED: DABI75CA3 MT (18:32)
[2018-08-21] MEDS ORDERED: ALLO100T MT (18:32)
== END 2018-08-20 18:22 | DRG 291 ==
LOC: ER 07:58 → EDBEDREQ 09:12 → 3WST 10:10 → EDBEDREQ 10:14 → EDBEDREQTM 10:14 → ENRESERV 10:16 → 3WST 08-16 11:14 → 7WST 08-19 14:43
PROVIDERS: ADMIT Internal Medicine; ATTEND Internal Medicine
PROC: 05H733Z Insertion of Infusion Device into Right Axillary Vein, Percutaneous Approach (ICD-10-PCS; principal; 2018-08-14)
PROC: B54MZZA Ultrasonography of Right Upper Extremity Veins, Guidance (ICD-10-PCS; 2018-08-14)
DX: I13.0 Hypertensive heart and chronic kidney disease with heart failure and stage 1 through stage 4 chronic kidney disease, or unspecified chronic kidney disease (principal); J18.9 Pneumonia, unspecified organism; I50.43 Acute on chronic combined systolic (congestive) and diastolic (congestive) heart failure; J96.01 Acute respiratory failure with hypoxia; N17.9 Acute kidney failure, unspecified; J44.1 Chronic obstructive pulmonary disease with (acute) exacerbation; E87.4 Mixed disorder of acid-base balance; F23 Brief psychotic disorder; J44.0 Chronic obstructive pulmonary disease with (acute) lower respiratory infection; I42.9 Cardiomyopathy, unspecified; I48.0 Paroxysmal atrial fibrillation; E87.5 Hyperkalemia; N18.9 Chronic kidney disease, unspecified; M10.9 Gout, unspecified; Z60.2 Problems related to living alone; I95.9 Hypotension, unspecified; R31.9 Hematuria, unspecified; J20.9 Acute bronchitis, unspecified; Z87.01 Personal history of pneumonia (recurrent); Z88.8 Allergy status to other drugs, medicaments and biological substances; Z90.13 Acquired absence of bilateral breasts and nipples; Z85.3 Personal history of malignant neoplasm of breast; Z88.0 Allergy status to penicillin; Z79.899 Other long term (current) drug therapy
CPT/HCPCS: 36415; 36600; 71045; 76770; 76937; 80048; 82375; 82575; 82805; 82962; 83520; 83735; 83880; 84100; 84484; 85027; 86038; 86256; 86706; 86803; 93005; 93306; 93970; 94640; 96374; 97110; 97162; 97166; 97530; 99291; C1725; J0456; J0780; J1160; J1650; J1940; J1956; J2060; J2765; J3475; J3490; J7040; J7050; J7060; J7611; J7620; A4315

== ENCOUNTER 2018-08-20 18:25 | Inpatient (IN) | payer MEDICARE, MEDICAID ==
[~2018-08-20] VITALS: Ht 170.2 cm; Wt 90.7 kg
[2018-08-20 20:00] VITALS: BP_SYST 108; BP_SYST 118; BP_DIAS 66
[2018-08-20] MEDS ORDERED: PROCHLORPERAZINE 10MG/2ML VIAL IV PRN (21:15)
[2018-08-20] MEDS ORDERED: GUAIFENESIN 200MG/10ML SUGAR FREE UDC PO PRN (21:15)
[2018-08-20] MEDS ORDERED: ACETAMINOPHEN 325MG TABLET PO PRN (21:15)
[2018-08-20] MEDS ORDERED: DIPHENHYDRAMINE 50MG/ML VIAL IV PRN (21:15)
[2018-08-20] MEDS ORDERED: ALBUTEROL (0.083%) 2.5MG/3ML NEB HHN PRN (21:15)
[2018-08-20] MEDS ORDERED: CLONIDINE 0.1MG TABLET PO PRN (21:15)
[2018-08-20] MEDS ORDERED: IPRATROPIUM BROMIDE (0.02%) 0.5MG/2.5ML NEB ONE (21:46)
[2018-08-20] MEDS ORDERED: BUDESONIDE 0.5MG/2ML NEB ONE (21:46)
[2018-08-20] MEDS: GUAIFENESIN 600MG ER TABLET PO SCH (22:00)
[2018-08-20] MEDS: QUETIAPINE FUMARATE 25MG TABLET PO SCH (23:16)
[2018-08-20] MEDS: DIGOXIN 125MCG TABLET PO SCH (23:16)
[2018-08-21] MEDS ORDERED: AZITHROMYCIN 500 MG in DEXT 5% WATER 250 ML IV SCH (00:30)
[2018-08-21] MEDS: ALBUTEROL (0.083%) 2.5MG/3ML NEB HHN SCH ×2 (00:54→04:49)
[2018-08-21 08:07] VITALS: BP 109/61
[2018-08-21] MEDS: DILTIAZEM HCL 120MG CAPSULE CD 24HR PO SCH (09:00)
[2018-08-21] MEDS: ALLOPURINOL 100 MG TABLET PO SCH (09:36)
[2018-08-21] MEDS: GUAIFENESIN 600MG ER TABLET PO SCH ×2 (09:36→21:18)
[2018-08-21] MEDS: METOCLOPRAMIDE HCL 10MG/2ML VIAL IV PRN (09:37)
[2018-08-21] MEDS: LETROZOLE 2.5MG TABLET PO SCH (09:38)
[2018-08-21] MEDS ORDERED: HYDROCODONE/ACETAMINOPHEN 5/325MG TABLET PO PRN (12:00)
[2018-08-21] MEDS: BISACODYL 5MG TABLET PO PRN (13:00)
[2018-08-21] MEDS ORDERED: LEVOFLOXACIN 250MG PREMIX 50 ML IV SCH (14:00)
[2018-08-21] MEDS: ENOXAPARIN 100MG/ML SYR SUBCUT SCH (15:39)
[2018-08-21] MEDS: IPRATROPIUM/ALBUTEROL 0.5-3(2.5)MG/3ML NEB HHN SCH ×2 (15:48→20:06)
[2018-08-21] MEDS: DIGOXIN 125MCG TABLET PO SCH (17:12)
[2018-08-21] MEDS ORDERED: LETR2.5T6 MT (18:30)
[2018-08-21] MEDS ORDERED: SPIR50TA5 MT (18:30)
[2018-08-21] MEDS ORDERED: INDA1.255 MT (18:30)
[2018-08-21] MEDS ORDERED: CRES10 MT (18:30)
[2018-08-21] MEDS ORDERED: PANT40TA4 MT (18:30)
[2018-08-21] MEDS ORDERED: CILO100T MT (18:30)
[2018-08-21] MEDS ORDERED: DABI75CA3 MT (18:32)
[2018-08-21] MEDS ORDERED: ALLO100T MT (18:32)
[2018-08-21 20:00] VITALS: BP 118/62
[2018-08-21] MEDS: QUETIAPINE FUMARATE 25MG TABLET PO SCH (21:18)
[2018-08-21] MEDS: CARVEDILOL 3.125 MG TABLET PO SCH (21:18)
[2018-08-22 07:55] VITALS: BP 132/77
[2018-08-22] MEDS: DILTIAZEM HCL 120MG CAPSULE CD 24HR PO SCH (08:16)
[2018-08-22] MEDS: CARVEDILOL 3.125 MG TABLET PO SCH ×2 (08:16→21:00)
[2018-08-22] MEDS: LOSARTAN POTASSIUM 25 MG TABLET PO SCH (08:16)
[2018-08-22 08:17] VITALS: BP 104/60
[2018-08-22] MEDS: ALLOPURINOL 100 MG TABLET PO SCH (08:56)
[2018-08-22] MEDS: GUAIFENESIN 600MG ER TABLET PO SCH ×2 (08:56→21:45)
[2018-08-22] MEDS: FUROSEMIDE 20MG TABLET PO SCH (08:56)
[2018-08-22] MEDS: SPIRONOLACTONE 25MG TABLET PO SCH (08:56)
[2018-08-22] MEDS: LETROZOLE 2.5MG TABLET PO SCH (08:57)
[2018-08-22] MEDS: ENOXAPARIN 100MG/ML SYR SUBCUT SCH (16:12)
[2018-08-22] MEDS: DIGOXIN 125MCG TABLET PO SCH (17:08)
[2018-08-22 17:45] LABS: HEMOGLOBIN. 13.6 g/dL (12.0-16.0); MEAN CORPUSCULAR HEMOGLOBIN 30.3 pg (28.0-32.0); MEAN CORPUSCULAR VOLUME 91.6 fL (81.0-99.0); MEAN PLATELET VOLUME 8.9 fl (7.4-10.4); PLATELET 207 x1000/uL (130-400); RED BLOOD CELL COUNT 4.48 mill/uL (4.2-5.4); RED CELL DISTRIBUTION WIDTH 17.1 % (11.6-14.6)
[2018-08-22 18:00] LABS: PLATELET ESTIMATE NORMAL
[2018-08-22 18:02] LABS: CHLORIDE 102 mEq/L (98-107)
[2018-08-22 18:11] LABS: T4 FREE 1.24 ng/dL (0.76-1.46)
[2018-08-22] MEDS: IPRATROPIUM/ALBUTEROL 0.5-3(2.5)MG/3ML NEB HHN SCH (19:49)
[2018-08-22 20:00] VITALS: BP 116/45
[2018-08-22] MEDS: QUETIAPINE FUMARATE 25MG TABLET PO SCH (21:45)
[2018-08-23] MEDS: IPRATROPIUM/ALBUTEROL 0.5-3(2.5)MG/3ML NEB HHN SCH ×3 (07:57→21:09)
[2018-08-23 08:00] VITALS: BP 96/70
[2018-08-23] MEDS: FUROSEMIDE 20MG TABLET PO SCH (09:00)
[2018-08-23] MEDS: DILTIAZEM HCL 120MG CAPSULE CD 24HR PO SCH (09:00)
[2018-08-23] MEDS: CARVEDILOL 3.125 MG TABLET PO SCH ×2 (09:00→21:00)
[2018-08-23] MEDS: SPIRONOLACTONE 25MG TABLET PO SCH (09:00)
[2018-08-23] MEDS: LOSARTAN POTASSIUM 25 MG TABLET PO SCH (09:00)
[2018-08-23] MEDS: LETROZOLE 2.5MG TABLET PO SCH (09:47)
[2018-08-23] MEDS: GUAIFENESIN 600MG ER TABLET PO SCH ×2 (09:47→21:55)
[2018-08-23] MEDS: ALLOPURINOL 100 MG TABLET PO SCH (09:47)
[2018-08-23] MEDS: APIXABAN 5 MG TABLET PO SCH (17:48)
[2018-08-23] MEDS: DIGOXIN 125MCG TABLET PO SCH (17:51)
[2018-08-23 20:00] VITALS: BP 110/74
[2018-08-23] MEDS: QUETIAPINE FUMARATE 25MG TABLET PO SCH (21:55)
[2018-08-24] MEDS: IPRATROPIUM/ALBUTEROL 0.5-3(2.5)MG/3ML NEB HHN SCH ×3 (07:20→20:13)
[2018-08-24 08:11] VITALS: BP 89/49
[2018-08-24] MEDS: CARVEDILOL 3.125 MG TABLET PO SCH ×2 (09:00→21:00)
[2018-08-24] MEDS: LOSARTAN POTASSIUM 25 MG TABLET PO SCH (09:00)
[2018-08-24] MEDS: DILTIAZEM HCL 120MG CAPSULE CD 24HR PO SCH (09:00)
[2018-08-24] MEDS: ALLOPURINOL 100 MG TABLET PO SCH (10:14)
[2018-08-24] MEDS: APIXABAN 5 MG TABLET PO SCH ×2 (10:14→17:10)
[2018-08-24] MEDS: SPIRONOLACTONE 25MG TABLET PO SCH (10:14)
[2018-08-24] MEDS: FUROSEMIDE 20MG TABLET PO SCH (10:15)
[2018-08-24] MEDS: BISACODYL 5MG TABLET PO PRN (10:15)
[2018-08-24] MEDS: GUAIFENESIN 600MG ER TABLET PO SCH ×2 (10:23→21:06)
[2018-08-24] MEDS: LETROZOLE 2.5MG TABLET PO SCH (10:23)
[2018-08-24] MEDS: DIGOXIN 125MCG TABLET PO SCH (17:10)
[2018-08-24 20:00] VITALS: BP 116/69
[2018-08-24] MEDS: QUETIAPINE FUMARATE 25MG TABLET PO SCH (21:06)
[2018-08-25 08:27] VITALS: BP 96/60
[2018-08-25] MEDS: CARVEDILOL 3.125 MG TABLET PO SCH ×2 (09:00→21:00)
[2018-08-25] MEDS: LOSARTAN POTASSIUM 25 MG TABLET PO SCH (09:00)
[2018-08-25] MEDS: DILTIAZEM HCL 120MG CAPSULE CD 24HR PO SCH (09:00)
[2018-08-25] MEDS: GUAIFENESIN 600MG ER TABLET PO SCH ×2 (09:12→21:08)
[2018-08-25] MEDS: ALLOPURINOL 100 MG TABLET PO SCH (09:13)
[2018-08-25] MEDS: FUROSEMIDE 20MG TABLET PO SCH (09:13)
[2018-08-25] MEDS: METOCLOPRAMIDE HCL 10MG/2ML VIAL IV PRN (09:24)
[2018-08-25] MEDS: LETROZOLE 2.5MG TABLET PO SCH (09:24)
[2018-08-25] MEDS: IPRATROPIUM/ALBUTEROL 0.5-3(2.5)MG/3ML NEB HHN SCH ×3 (09:25→21:39)
[2018-08-25] MEDS: APIXABAN 5 MG TABLET PO SCH ×2 (10:11→17:08)
[2018-08-25] MEDS: SPIRONOLACTONE 25MG TABLET PO SCH (11:18)
[2018-08-25] MEDS: DIGOXIN 125MCG TABLET PO SCH (17:08)
[2018-08-25 20:00] VITALS: BP 105/37
[2018-08-25] MEDS: QUETIAPINE FUMARATE 25MG TABLET PO SCH (21:09)
[2018-08-26 08:00] VITALS: BP 127/70
[2018-08-26] MEDS: DILTIAZEM HCL 120MG CAPSULE CD 24HR PO SCH (08:33)
[2018-08-26] MEDS: LOSARTAN POTASSIUM 25 MG TABLET PO SCH (08:34)
[2018-08-26] MEDS: GUAIFENESIN 600MG ER TABLET PO SCH ×2 (08:34→21:15)
[2018-08-26] MEDS: APIXABAN 5 MG TABLET PO SCH ×2 (08:34→16:43)
[2018-08-26] MEDS: SPIRONOLACTONE 25MG TABLET PO SCH (08:34)
[2018-08-26] MEDS: ALLOPURINOL 100 MG TABLET PO SCH (08:34)
[2018-08-26] MEDS: FUROSEMIDE 20MG TABLET PO SCH (08:41)
[2018-08-26] MEDS: CARVEDILOL 3.125 MG TABLET PO SCH ×2 (08:42→21:00)
[2018-08-26] MEDS: LETROZOLE 2.5MG TABLET PO SCH (08:51)
[2018-08-26] MEDS: IPRATROPIUM/ALBUTEROL 0.5-3(2.5)MG/3ML NEB HHN SCH ×3 (10:07→21:26)
[2018-08-26] MEDS: DIGOXIN 125MCG TABLET PO SCH (17:33)
[2018-08-26 20:00] VITALS: BP 93/70
[2018-08-26 20:13] LABS: BASOPHILS % 0.6 % (0.0-2.0); EOSINOPHILS % 0.9 % (0.0-5.0); HEMATOCRIT. 40.2 % (36.0-48.0); HEMOGLOBIN. 13.2 g/dL (12.0-16.0); LYMPHOCYTES % 14.5 % (20.0-50.0); MEAN CORPUSCULAR VOLUME 91.5 fL (81.0-99.0); MEAN PLATELET VOLUME 9.3 fl (7.4-10.4); MONOCYTES % 11.3 % (2.0-8.0); NEUTROPHILS % 72.7 % (40.0-76.0); PLATELET 230 x1000/uL (130-400); RED CELL DISTRIBUTION WIDTH 17.2 % (11.6-14.6)
[2018-08-26] MEDS: QUETIAPINE FUMARATE 25MG TABLET PO SCH (21:15)
[2018-08-27] MEDS: IPRATROPIUM/ALBUTEROL 0.5-3(2.5)MG/3ML NEB HHN SCH ×3 (07:34→21:36)
[2018-08-27 08:00] VITALS: BP 107/82
[2018-08-27] MEDS: GUAIFENESIN 600MG ER TABLET PO SCH ×2 (08:32→21:14)
[2018-08-27] MEDS: LOSARTAN POTASSIUM 25 MG TABLET PO SCH (08:32)
[2018-08-27] MEDS: APIXABAN 5 MG TABLET PO SCH ×2 (08:32→17:22)
[2018-08-27] MEDS: FUROSEMIDE 20MG TABLET PO SCH (08:33)
[2018-08-27] MEDS: SPIRONOLACTONE 25MG TABLET PO SCH (08:33)
[2018-08-27] MEDS: ALLOPURINOL 100 MG TABLET PO SCH (08:33)
[2018-08-27] MEDS: LETROZOLE 2.5MG TABLET PO SCH (08:34)
[2018-08-27] MEDS: CARVEDILOL 3.125 MG TABLET PO SCH ×2 (08:35→21:00)
[2018-08-27] MEDS: DILTIAZEM HCL 120MG CAPSULE CD 24HR PO SCH (08:36)
[2018-08-27] MEDS: DIGOXIN 125MCG TABLET PO SCH (17:21)
[2018-08-27 17:22] VITALS: BP 103/65
[2018-08-27 20:00] VITALS: BP 125/55
[2018-08-27] MEDS: QUETIAPINE FUMARATE 25MG TABLET PO SCH (21:14)
[2018-08-28] MEDS: IPRATROPIUM/ALBUTEROL 0.5-3(2.5)MG/3ML NEB HHN SCH ×3 (07:23→21:05)
[2018-08-28 08:29] VITALS: BP 100/50
[2018-08-28] MEDS: LOSARTAN POTASSIUM 25 MG TABLET PO SCH (09:00)
[2018-08-28] MEDS: CARVEDILOL 3.125 MG TABLET PO SCH ×2 (09:00→21:00)
[2018-08-28] MEDS: DILTIAZEM HCL 120MG CAPSULE CD 24HR PO SCH (09:00)
[2018-08-28] MEDS: SPIRONOLACTONE 25MG TABLET PO SCH (09:11)
[2018-08-28] MEDS: ALLOPURINOL 100 MG TABLET PO SCH (09:11)
[2018-08-28] MEDS: FUROSEMIDE 20MG TABLET PO SCH (09:11)
[2018-08-28] MEDS: GUAIFENESIN 600MG ER TABLET PO SCH ×2 (09:11→21:32)
[2018-08-28] MEDS: LETROZOLE 2.5MG TABLET PO SCH (09:12)
[2018-08-28] MEDS: APIXABAN 5 MG TABLET PO SCH ×2 (11:18→17:30)
[2018-08-28] MEDS ORDERED: MAGNESIUM OXIDE 400MG TABLET PO SCH (11:20)
[2018-08-28] MEDS: DIGOXIN 125MCG TABLET PO SCH (17:46)
[2018-08-28 20:00] VITALS: BP 109/61
[2018-08-28] MEDS: QUETIAPINE FUMARATE 25MG TABLET PO SCH (21:32)
[2018-08-29] MEDS: IPRATROPIUM/ALBUTEROL 0.5-3(2.5)MG/3ML NEB HHN SCH ×3 (07:16→21:11)
[2018-08-29 08:23] VITALS: BP 135/96
[2018-08-29] MEDS: LOSARTAN POTASSIUM 25 MG TABLET PO SCH (08:57)
[2018-08-29] MEDS: DILTIAZEM HCL 120MG CAPSULE CD 24HR PO SCH (08:57)
[2018-08-29] MEDS: ALLOPURINOL 100 MG TABLET PO SCH (08:58)
[2018-08-29] MEDS: CARVEDILOL 3.125 MG TABLET PO SCH ×2 (08:58→21:00)
[2018-08-29] MEDS: FUROSEMIDE 20MG TABLET PO SCH (08:58)
[2018-08-29] MEDS: GUAIFENESIN 600MG ER TABLET PO SCH ×2 (08:58→22:15)
[2018-08-29] MEDS: SPIRONOLACTONE 25MG TABLET PO SCH (08:58)
[2018-08-29] MEDS: APIXABAN 5 MG TABLET PO SCH ×2 (11:55→16:50)
[2018-08-29] MEDS: LETROZOLE 2.5MG TABLET PO SCH (11:55)
[2018-08-29] MEDS: DIGOXIN 125MCG TABLET PO SCH (16:50)
[2018-08-29 20:00] VITALS: BP 92/63
[2018-08-29] MEDS: QUETIAPINE FUMARATE 25MG TABLET PO SCH (22:15)
[2018-08-30] MEDS: IPRATROPIUM/ALBUTEROL 0.5-3(2.5)MG/3ML NEB HHN SCH ×3 (07:58→20:01)
[2018-08-30 08:05] VITALS: BP 111/60
[2018-08-30] MEDS: DILTIAZEM HCL 120MG CAPSULE CD 24HR PO SCH (09:00)
[2018-08-30] MEDS: LOSARTAN POTASSIUM 25 MG TABLET PO SCH (09:00)
[2018-08-30] MEDS: CARVEDILOL 3.125 MG TABLET PO SCH ×2 (09:00→20:50)
[2018-08-30] MEDS: GUAIFENESIN 600MG ER TABLET PO SCH ×2 (09:25→20:54)
[2018-08-30] MEDS: ALLOPURINOL 100 MG TABLET PO SCH (09:25)
[2018-08-30] MEDS: SPIRONOLACTONE 25MG TABLET PO SCH (09:25)
[2018-08-30] MEDS: FUROSEMIDE 20MG TABLET PO SCH (09:26)
[2018-08-30] MEDS: APIXABAN 5 MG TABLET PO SCH ×2 (09:26→16:24)
[2018-08-30] MEDS: LETROZOLE 2.5MG TABLET PO SCH (09:53)
[2018-08-30] MEDS: DIGOXIN 125MCG TABLET PO SCH (18:15)
[2018-08-30 20:00] VITALS: BP 93/57
[2018-08-30] MEDS: QUETIAPINE FUMARATE 25MG TABLET PO SCH (20:54)
[2018-08-31] MEDS: IPRATROPIUM/ALBUTEROL 0.5-3(2.5)MG/3ML NEB HHN SCH ×3 (07:07→21:18)
[2018-08-31 07:32] LABS: CHLORIDE 105 mEq/L (98-107)
[2018-08-31 07:55] LABS: DIGOXIN 1.7 ng/mL (0.9-2.0)
[2018-08-31 08:00] VITALS: BP 91/57
[2018-08-31] MEDS: CARVEDILOL 3.125 MG TABLET PO SCH ×2 (09:00→20:28)
[2018-08-31] MEDS: DILTIAZEM HCL 120MG CAPSULE CD 24HR PO SCH (09:00)
[2018-08-31] MEDS: GUAIFENESIN 600MG ER TABLET PO SCH ×2 (09:00→20:29)
[2018-08-31] MEDS: LOSARTAN POTASSIUM 25 MG TABLET PO SCH (09:00)
[2018-08-31] MEDS: APIXABAN 5 MG TABLET PO SCH ×2 (09:22→17:02)
[2018-08-31] MEDS: SPIRONOLACTONE 25MG TABLET PO SCH (09:22)
[2018-08-31] MEDS: FUROSEMIDE 20MG TABLET PO SCH (09:22)
[2018-08-31] MEDS: ALLOPURINOL 100 MG TABLET PO SCH (09:22)
[2018-08-31] MEDS: LETROZOLE 2.5MG TABLET PO SCH (09:23)
[2018-08-31] MEDS: BISACODYL 5MG TABLET PO PRN (10:07)
[2018-08-31] MEDS ORDERED: METOCLOPRAMIDE HCL 10MG TABLET PO PRN (13:30)
[2018-08-31] MEDS: DIGOXIN 125MCG TABLET PO SCH (17:02)
[2018-08-31 20:00] VITALS: BP 108/53
[2018-08-31] MEDS: QUETIAPINE FUMARATE 25MG TABLET PO SCH (20:29)
[2018-09-01 08:00] VITALS: BP 105/43
[2018-09-01] MEDS: IPRATROPIUM/ALBUTEROL 0.5-3(2.5)MG/3ML NEB HHN SCH (08:08)
[2018-09-01] MEDS ORDERED: DILTIAZEM HCL 120MG CAPSULE CD 24HR PO SCH (09:00)
[2018-09-01] MEDS: LOSARTAN POTASSIUM 25 MG TABLET PO SCH (09:00)
[2018-09-01] MEDS: CARVEDILOL 3.125 MG TABLET PO SCH (09:00)
[2018-09-01] MEDS: SPIRONOLACTONE 25MG TABLET PO SCH (09:00)
[2018-09-01] MEDS: FUROSEMIDE 20MG TABLET PO SCH (09:07)
[2018-09-01] MEDS: ALLOPURINOL 100 MG TABLET PO SCH (09:07)
[2018-09-01] MEDS: APIXABAN 5 MG TABLET PO SCH (09:07)
[2018-09-01] MEDS: GUAIFENESIN 600MG ER TABLET PO SCH (09:07)
[2018-09-01] MEDS: LETROZOLE 2.5MG TABLET PO SCH (13:13)
[2018-09-01 14:14] VITALS: BP 105/43
== END 2018-09-01 15:35 | disposition home health service (06) | DRG 291 ==
PROVIDERS: ADMIT Psychiatry & Neurology Neurology; ATTEND Internal Medicine
DX: I13.2 Hypertensive heart and chronic kidney disease with heart failure and with stage 5 chronic kidney disease, or end stage renal disease (principal); J96.00 Acute respiratory failure, unspecified whether with hypoxia or hypercapnia; I50.43 Acute on chronic combined systolic (congestive) and diastolic (congestive) heart failure; N18.6 End stage renal disease; N18.4 Chronic kidney disease, stage 4 (severe); E87.1 Hypo-osmolality and hyponatremia; E87.2 Acidosis; J44.0 Chronic obstructive pulmonary disease with (acute) lower respiratory infection; N17.9 Acute kidney failure, unspecified; I48.91 Unspecified atrial fibrillation; I42.9 Cardiomyopathy, unspecified; E78.5 Hyperlipidemia, unspecified; J44.9 Chronic obstructive pulmonary disease, unspecified; G62.9 Polyneuropathy, unspecified; K21.9 Gastro-esophageal reflux disease without esophagitis; N18.9 Chronic kidney disease, unspecified; M10.9 Gout, unspecified; E03.9 Hypothyroidism, unspecified; E83.42 Hypomagnesemia; I08.1 Rheumatic disorders of both mitral and tricuspid valves; E88.09 Other disorders of plasma-protein metabolism, not elsewhere classified; F06.31 Mood disorder due to known physiological condition with depressive features; J20.9 Acute bronchitis, unspecified; N30.90 Cystitis, unspecified without hematuria; L89.159 Pressure ulcer of sacral region, unspecified stage; Z79.899 Other long term (current) drug therapy; Z85.3 Personal history of malignant neoplasm of breast; Z90.13 Acquired absence of bilateral breasts and nipples
CPT/HCPCS: 36415; 74018; 80048; 80162; 84134; 84439; 84443; 92523; 94640; 97110; 97112; 97116; 97162; 97167; 97530; 97535; C1893; J0456; J1650; J1956; J2765; J7040; J7060; J7611; J7620; J7626; J8597

== ENCOUNTER 2023-06-21 19:17 | Inpatient (IN) | payer MEDICARE, OTHER ==
[~2023-06-21] VITALS: Ht 167.6 cm; Wt 68.0 kg
[~2023-06-21 19:17] MED LIST changes: -ALD50 PO; +APIX5TAB PO; -CILO100T PO; +CRES10 PO; -INDA1.255 PO; +LETR2.5T7 PO; -LETROZOLE; +MULT-647 PO; -PANT40TA4 PO; -[UNRECOGNIZED DRUG - OTHER]
[2023-06-21 20:15] LABS: BASOPHILS % 0.5 % (0.0-2.0); EOSINOPHILS % 0.2 % (0.0-5.0); HEMOGLOBIN. 14.7 g/dL (12.0-16.0); LYMPHOCYTES % 19.6 % (20.0-50.0); MEAN CORPUSCULAR HEMOGLOBIN 30.7 pg (28.0-32.0); MEAN CORPUSCULAR HGB CONC 33.3 g/dL (31.0-37.0); MEAN CORPUSCULAR VOLUME 92.1 fL (81.0-99.0); MEAN PLATELET VOLUME 10.2 fl (7.4-10.4); MONOCYTES % 9.2 % (2.0-8.0); NEUTROPHILS % 70.5 % (40.0-76.0); PLATELET 195 x1000/uL (130-400); RED BLOOD CELL COUNT 4.78 mill/uL (4.2-5.4); RED CELL DISTRIBUTION WIDTH 17.7 % (11.6-14.6); WHITE BLOOD COUNT 7.7 x1000/uL (4.5-11.0)
[2023-06-21 20:24] LABS: CHLORIDE 112 mEq/L (98-107); POTASSIUM 4.5 mEq/L (3.5-5.1); SODIUM 139 mEq/L (136-145)
[2023-06-21 20:25] LABS: CARBON DIOXIDE 19 mEq/L (21-32)
[2023-06-21 20:26] LABS: CALCIUM 9.8 mg/dL (8.7-10.4)
[2023-06-21 20:27] LABS: INR 1.4; PROTHROMBIN TIME 15.3 sec (9.6-11.0)
[2023-06-21 20:30] LABS: CREATININE 1.7 mg/dL (0.6-1.0); GLUCOSE 123 mg/dL (70-105); UREA NITROGEN BLOOD 41 mg/dL (9-23)
[2023-06-21] MEDS: DILTIAZEM HCL 5MG/ML 5ML VIAL IV ONE (20:33)
[2023-06-21 20:36] LABS: ETHANOL BLOOD < 10 mg/dL (<10)
[2023-06-21 20:40] LABS: LACTIC ACID 3.2 mmol/L (0.4-2.0)
[2023-06-21 20:41] LABS: TROPONIN I HIGH SENSITIVITY 40 ng/L (3.0-34)
[2023-06-21] MEDS ORDERED: IOHEXOL-350 100 ML BOTTLE ONE (21:11)
[2023-06-22] MEDS ORDERED: HYDRALAZINE 20MG/ML VIAL IV PRN (00:15)
[2023-06-22] MEDS ORDERED: DOCUSATE SODIUM 100MG CAPSULE PO PRN (00:15)
[2023-06-22] MEDS ORDERED: MAGNESIUM/ALUMINUM HYDROXIDE/SIMETHICONE 30ML UDC PO PRN (00:15)
[2023-06-22] MEDS ORDERED: ONDANSETRON HCL 4MG/2ML INJ IV PRN (00:15)
[2023-06-22] MEDS ORDERED: ACETAMINOPHEN 325MG TABLET PO PRN ×2 (00:15)
[2023-06-22] MEDS ORDERED: IPRATROPIUM/ALBUTEROL 0.5-3(2.5)MG/3ML NEB HHN PRN (00:15)
[2023-06-22] MEDS ORDERED: CEFTRIAXONE 500 MG in DEXTROSE 5% WATER 50 ML IV SCH (00:45)
[2023-06-22] MEDS ORDERED: AZITHROMYCIN 250 MG in DEXT 5% WATER 250 ML IV SCH (00:45)
[2023-06-22 01:28] LABS: PHOSPHORUS 4.7 mg/dL (2.5-4.9)
[2023-06-22] MEDS ORDERED: IPRATROPIUM/ALBUTEROL 0.5-3(2.5)MG/3ML NEB HHN NR (01:30)
[2023-06-22 01:31] LABS: VITAMIN B12 SERUM 976 pg/mL (211-911)
[2023-06-22 01:38] LABS: TROPONIN I HIGH SENSITIVITY 44 ng/L (3.0-34)
[2023-06-22] MEDS: LEVOFLOXACIN 500MG PREMIX 100ML IV NR (01:42)
[2023-06-22] MEDS: ASPIRIN 325MG EC TABLET PO NR ×2 (01:42→17:40)
[2023-06-22] MEDS: ENOXAPARIN 80MG/0.8ML SYR SUBCUT SCH (01:42)
[2023-06-22] MEDS: FUROSEMIDE 40MG/4ML VIAL IVP NR (01:42)
[2023-06-22] MEDS: DIGOXIN 500MCG/2ML AMP IV NR (03:55)
[2023-06-22 04:00] VITALS: BP 116/97; PULSE 79; RESP 22; TEMP 97.2
[2023-06-22 04:23] VITALS: BP 116/97; PULSE 153; RESP 22; TEMP 97.2
[2023-06-22] MEDS: AZITHROMYCIN 500MG/250ML IV SCH (05:48)
[2023-06-22] MEDS: PANTOPRAZOLE SODIUM 40 MG/VIAL IV SCH (08:57)
[2023-06-22] MEDS: ALLOPURINOL 100 MG TABLET PO SCH (08:57)
[2023-06-22] MEDS ORDERED: MEDICATION NOT ON FORMULARY EA (Rosuvastatin Calcium (Crestor) 10 MG) PO SCH (09:00)
[2023-06-22] MEDS ORDERED: APIXABAN 5 MG TABLET PO SCH (09:00)
[2023-06-22] MEDS: LETROZOLE 2.5MG TABLET PO SCH (09:28)
[2023-06-22] MEDS: DEXT 5%/0.45% NACL 1000ML 1,000 ML IV SCH (09:28)
[2023-06-22 10:56] LABS: CREATINE KINASE MB FRACTION 1.7 ng/mL (0.5-3.6)
[2023-06-22 12:00] VITALS: BP 161/108; PULSE 144; RESP 18; TEMP 97.7
[2023-06-22] MEDS: METOPROLOL SUCCINATE 50MG ER TABLET PO SCH (13:54)
[2023-06-22] MEDS: METOPROLOL TARTRATE 5MG/5ML VIAL IV NR (13:55)
[2023-06-22] MEDS ORDERED: CARVEDILOL 6.25 MG TABLET PO SCH (14:00)
[2023-06-22] MEDS ORDERED: METO-385 PO (14:18)
[2023-06-22] MEDS ORDERED: DIGO125T PO (14:18)
[2023-06-22] MEDS ORDERED: ALLO100T PO (14:18)
[2023-06-22 16:00] VITALS: BP 125/87; PULSE 71; RESP 18; TEMP 97.7
[2023-06-22] MEDS: DIGOXIN 500MCG/2ML AMP IV SCH (17:41)
[2023-06-22 18:41] LABS: CREATINE KINASE MB FRACTION 1.5 ng/mL (0.5-3.6)
[2023-06-22 20:00] VITALS: BP 113/84; PULSE 96; RESP 17; TEMP 97.9
[2023-06-22] MEDS: CARVEDILOL 6.25 MG TABLET PO SCH (21:20)
[2023-06-22] MEDS: ATORVASTATIN CALCIUM 40MG TABLET PO SCH (21:20)
[2023-06-23] VITALS (7 sets, daily range): BP systolic 106–136; BP diastolic 68–89; PULSE 73–97; RESP 17–18; TEMP 97.4–97.8
[2023-06-23] MEDS: ENOXAPARIN 80MG/0.8ML SYR SUBCUT SCH (05:27)
[2023-06-23] MEDS ORDERED: LEVOFLOXACIN 250MG PREMIX 50 ML IV SCH (09:00)
[2023-06-23] MEDS ORDERED: LORAZEPAM 0.5MG TABLET PO PRN (09:30)
[2023-06-23] MEDS: ASPIRIN 81MG TABLET PO SCH (09:40)
[2023-06-23] MEDS: LEVOFLOXACIN 250MG PREMIX 50 ML IV SCH (10:44)
[2023-06-23] MEDS: LORAZEPAM 2MG/ML INJ IV NR (11:32)
[2023-06-24] VITALS: BP 110/69; PULSE 101; RESP 17; TEMP 97.6
[2023-06-24 04:00] VITALS: BP 120/80; PULSE 99; RESP 17; TEMP 97.5
[2023-06-24 06:56] LABS: BASOPHILS % 0.4 % (0.0-2.0); EOSINOPHILS % 2.4 % (0.0-5.0); HEMATOCRIT. 41.5 % (36.0-48.0); LYMPHOCYTES % 26.3 % (20.0-50.0); MEAN CORPUSCULAR HEMOGLOBIN 30.3 pg (28.0-32.0); MEAN CORPUSCULAR HGB CONC 33.7 g/dL (31.0-37.0); MEAN PLATELET VOLUME 10.2 fl (7.4-10.4); NEUTROPHILS % 58.9 % (40.0-76.0); PLATELET 181 x1000/uL (130-400); RED BLOOD CELL COUNT 4.61 mill/uL (4.2-5.4); RED CELL DISTRIBUTION WIDTH 17.4 % (11.6-14.6); WHITE BLOOD COUNT 5.2 x1000/uL (4.5-11.0)
[2023-06-24 07:20] LABS: CHLORIDE 109 mEq/L (98-107); POTASSIUM 3.5 mEq/L (3.5-5.1); SODIUM 142 mEq/L (136-145)
[2023-06-24 07:21] LABS: CALCIUM 9.4 mg/dL (8.7-10.4); CARBON DIOXIDE 22 mEq/L (21-32)
[2023-06-24 07:26] LABS: GLUCOSE 106 mg/dL (70-105); UREA NITROGEN BLOOD 34 mg/dL (9-23)
[2023-06-24 07:28] LABS: PHOSPHORUS 3.4 mg/dL (2.5-4.9)
[2023-06-24 07:41] LABS: CREATININE 1.4 mg/dL (0.6-1.0)
[2023-06-24 08:00] VITALS: BP 120/84; PULSE 93; RESP 18; TEMP 97.5
[2023-06-24] MEDS ORDERED: LEVOFLOXACIN 750MG PREMIX 150 ML IV SCH (08:00)
[2023-06-24] MEDS: FAMOTIDINE 20MG/2ML VIAL IV SCH (09:24)
[2023-06-24 12:00] VITALS: BP 141/87; PULSE 76; RESP 20; TEMP 97.5
[2023-06-24] MEDS: AZTREONAM 1 G in DEXTROSE 5% WATER 50 ML IV SCH (13:00)
[2023-06-24 16:00] VITALS: BP 118/88; PULSE 90; RESP 18; TEMP 97.9
[2023-06-25] VITALS: BP_SYST 123; BP_SYST 125; BP_DIAS 52; BP_DIAS 82; PULSE 65; PULSE 86; RESP 18; TEMP 97.8
[2023-06-25 04:00] VITALS: BP 119/93; RESP 18; TEMP 97.7
[2023-06-25 08:00] VITALS: BP 118/89; PULSE 78; RESP 20; TEMP 97.3
[2023-06-25] MEDS: FAMOTIDINE 20MG TABLET PO SCH (11:47)
[2023-06-25 12:00] VITALS: BP 118/62; PULSE 81; RESP 20; TEMP 98.2
[2023-06-25 16:00] VITALS: BP 109/78; PULSE 113; RESP 20; TEMP 97.6
[2023-06-25] MEDS: DIGOXIN 125MCG TABLET PO SCH (18:43)
[2023-06-25 20:00] VITALS: BP 110/62; PULSE 100; RESP 18; TEMP 98.6
[2023-06-26] VITALS: BP 140/69; PULSE 87; RESP 18; TEMP 97.6
[2023-06-26 04:00] VITALS: BP 123/75; PULSE 86; RESP 18; TEMP 97
[2023-06-26 06:24] LABS: CARBON DIOXIDE 20 mEq/L (21-32); CHLORIDE 110 mEq/L (98-107); POTASSIUM 4.1 mEq/L (3.5-5.1); SODIUM 140 mEq/L (136-145)
[2023-06-26 06:25] LABS: CALCIUM 9.6 mg/dL (8.7-10.4)
[2023-06-26 06:30] LABS: CREATININE 1.3 mg/dL (0.6-1.0); GLUCOSE 71 mg/dL (70-105); UREA NITROGEN BLOOD 27 mg/dL (9-23)
[2023-06-26 06:32] LABS: PHOSPHORUS 3.2 mg/dL (2.5-4.9)
[2023-06-26 06:57] LABS: BASOPHILS % 0.5 % (0.0-2.0); EOSINOPHILS % 1.6 % (0.0-5.0); HEMATOCRIT. 42.7 % (36.0-48.0); HEMOGLOBIN. 14.3 g/dL (12.0-16.0); LYMPHOCYTES % 29.1 % (20.0-50.0); MEAN CORPUSCULAR HEMOGLOBIN 30.8 pg (28.0-32.0); MEAN CORPUSCULAR HGB CONC 33.6 g/dL (31.0-37.0); MEAN CORPUSCULAR VOLUME 91.6 fL (81.0-99.0); MONOCYTES % 14.2 % (2.0-8.0); NEUTROPHILS % 54.6 % (40.0-76.0); RED BLOOD CELL COUNT 4.66 mill/uL (4.2-5.4); RED CELL DISTRIBUTION WIDTH 17.3 % (11.6-14.6)
[2023-06-26 07:56] LABS: DIFFERENTIAL COMMENT 1
[2023-06-26 08:00] VITALS: BP 127/77; PULSE 85; RESP 20; TEMP 97.6
[2023-06-26] MEDS: LETROZOLE 2.5MG TABLET PO SCH (09:58)
[2023-06-26 11:12] LABS: MEAN PLATELET VOLUME 11.3 fl (7.4-10.4); PLATELET 175 x1000/uL (130-400)
[2023-06-26 12:00] VITALS: BP 116/96; PULSE 85; RESP 18; TEMP 98
[2023-06-26 16:00] VITALS: BP 134/93; PULSE 82; RESP 20; TEMP 97.9
[2023-06-27] VITALS: BP 103/66; PULSE 81; RESP 18; TEMP 98
[2023-06-27 04:00] VITALS: BP 139/89; PULSE 82; RESP 20; TEMP 97
[2023-06-27 08:00] VITALS: BP 131/77; PULSE 72; RESP 19; TEMP 95.9
[2023-06-27] MEDS: LACTULOSE 20G/30ML UDC PO SCH (09:00)
[2023-06-27] MEDS ORDERED: DOCUSATE SODIUM SUGAR FREE 100MG/10ML UDC PO PRN (09:00)
[2023-06-27 16:00] VITALS: BP 125/70; PULSE 70; RESP 18; TEMP 96.4
[2023-06-27 17:10] VITALS: BP 125/70; PULSE 70; TEMP 97.6; O2SAT 100
[2023-06-27 20:59] VITALS: PULSE 94
[2023-06-28] MEDS ORDERED: APIXABAN 5 MG TABLET PO SCH (09:00)
== END 2023-06-27 21:50 | DRG 64 ==
LOC: ER 19:17 → 8WST 22:58
PROVIDERS: ADMIT Preventive Medicine Clinical Informatics; ATTEND Preventive Medicine Clinical Informatics
DX: I63.9 Cerebral infarction, unspecified (principal); G93.41 Metabolic encephalopathy; I21.A1 Myocardial infarction type 2; I50.43 Acute on chronic combined systolic (congestive) and diastolic (congestive) heart failure; J18.9 Pneumonia, unspecified organism; N17.9 Acute kidney failure, unspecified; I13.0 Hypertensive heart and chronic kidney disease with heart failure and stage 1 through stage 4 chronic kidney disease, or unspecified chronic kidney disease; I42.9 Cardiomyopathy, unspecified; F03.90 Unspecified dementia, unspecified severity, without behavioral disturbance, psychotic disturbance, mood disturbance, and anxiety; N18.30 Chronic kidney disease, stage 3 unspecified; I65.29 Occlusion and stenosis of unspecified carotid artery; K21.9 Gastro-esophageal reflux disease without esophagitis; R73.03 Prediabetes; I25.10 Atherosclerotic heart disease of native coronary artery without angina pectoris; E78.2 Mixed hyperlipidemia; I48.91 Unspecified atrial fibrillation; Z92.3 Personal history of irradiation; Z92.21 Personal history of antineoplastic chemotherapy; Z91.81 History of falling; Z88.0 Allergy status to penicillin; Z85.3 Personal history of malignant neoplasm of breast; Z79.899 Other long term (current) drug therapy; Z79.82 Long term (current) use of aspirin; Z79.811 Long term (current) use of aromatase inhibitors; Z79.01 Long term (current) use of anticoagulants; Z74.01 Bed confinement status; R29.717 NIHSS score 17
CPT/HCPCS: 36415; 70496; 70498; 70551; 71045; 80048; 80061; 80320; 82550; 82553; 82607; 83036; 83605; 83735; 83880; 84100; 84145; 84484; 84550; 85025; 92610; 93005; 93306; 93970; 97162; 97166; 99291; 99292; C1893; C9113; J0456; J1160; J1650; J1940; J1956; J2060; J3490; J7060; Q9967; G0480

== ENCOUNTER 2023-06-27 21:40 | Inpatient (IN) | payer MEDICARE, OTHER ==
[~2023-06-27] VITALS: Ht 167.6 cm; Wt 73.9 kg
[~2023-06-27 21:40] MED LIST changes: +DIGO125T PO; +METO-385 PO
[2023-06-27 22:30] VITALS: BP 131/84; PULSE 85; RESP 19; TEMP 96.9
[2023-06-27] MEDS ORDERED: ACETAMINOPHEN 325MG TABLET PO PRN (23:30)
[2023-06-27] MEDS ORDERED: DOCUSATE SODIUM SUGAR FREE 100MG/10ML UDC NG PRN (23:30)
[2023-06-27] MEDS ORDERED: IPRATROPIUM/ALBUTEROL 0.5-3(2.5)MG/3ML NEB HHN PRN (23:30)
[2023-06-27] MEDS ORDERED: HYDRALAZINE 10 MG in SODIUM CHLORIDE 0.9% 49.5 ML IV PRN (23:30)
[2023-06-27] MEDS ORDERED: MAGNESIUM/ALUMINUM HYDROXIDE/SIMETHICONE 30ML UDC PO PRN (23:30)
[2023-06-28] MEDS: DEXT 5%/0.45% NACL 1000ML 1,000 ML IV SCH
[2023-06-28] MEDS ORDERED: HYDRALAZINE 10 MG in SODIUM CHLORIDE 0.9% 49.5 ML IV PRN (00:45)
[2023-06-28 08:00] VITALS: BP 135/87; PULSE 64; RESP 17; TEMP 96.1
[2023-06-28] MEDS: FAMOTIDINE 20MG TABLET PO SCH (08:19)
[2023-06-28] MEDS: ALLOPURINOL 100 MG TABLET PO SCH (08:19)
[2023-06-28] MEDS: APIXABAN 5 MG TABLET PO SCH (08:19)
[2023-06-28] MEDS: ASPIRIN 81MG TABLET PO SCH (08:19)
[2023-06-28] MEDS: CARVEDILOL 6.25 MG TABLET PO SCH (08:19)
[2023-06-28] MEDS: LETROZOLE 2.5MG TABLET PO SCH (08:19)
[2023-06-28] MEDS: LACTULOSE 20G/30ML UDC PO SCH (08:20)
[2023-06-28 08:55] LABS: CHLORIDE 112 mEq/L (98-107); SODIUM 140 mEq/L (136-145)
[2023-06-28 08:56] LABS: CALCIUM 9.2 mg/dL (8.7-10.4); CARBON DIOXIDE 21 mEq/L (21-32)
[2023-06-28 09:01] LABS: CREATININE 1.1 mg/dL (0.6-1.0); GLUCOSE 107 mg/dL (70-105)
[2023-06-28 09:02] LABS: ALANINE AMINOTRANSFERASE 28 IU/L (10-49); ALBUMIN 3.3 g/dL (3.2-4.8); ASPARTATE AMINOTRANSFERASE 30 IU/L (<34); UREA NITROGEN BLOOD 26 mg/dL (9-23)
[2023-06-28 09:03] LABS: BASOPHILS % 0.5 % (0.0-2.0); EOSINOPHILS % 2.2 % (0.0-5.0); HEMATOCRIT. 41.6 % (36.0-48.0); MEAN CORPUSCULAR HEMOGLOBIN 30.6 pg (28.0-32.0); MEAN CORPUSCULAR HGB CONC 33.7 g/dL (31.0-37.0); MEAN CORPUSCULAR VOLUME 90.6 fL (81.0-99.0); MEAN PLATELET VOLUME 10.1 fl (7.4-10.4); MONOCYTES % 13.8 % (2.0-8.0); NEUTROPHILS % 57.5 % (40.0-76.0); PLATELET 176 x1000/uL (130-400); RED BLOOD CELL COUNT 4.58 mill/uL (4.2-5.4); RED CELL DISTRIBUTION WIDTH 17.2 % (11.6-14.6); WHITE BLOOD COUNT 5.4 x1000/uL (4.5-11.0)
[2023-06-28 09:04] LABS: BILIRUBIN TOTAL 2.9 mg/dL (0.1-1.0); PROTEIN TOTAL 6.6 g/dL (6.0-8.3)
[2023-06-28] MEDS: DIGOXIN 125MCG TABLET PO SCH (17:11)
[2023-06-28 20:00] VITALS: BP 137/64; PULSE 74; RESP 18; TEMP 98.2
[2023-06-28] MEDS: ATORVASTATIN CALCIUM 40MG TABLET PO SCH (20:40)
[2023-06-29 08:00] VITALS: BP 134/75; PULSE 66; RESP 17; TEMP 97.5
[2023-06-29 20:00] VITALS: BP 104/79; PULSE 94; RESP 19; TEMP 97.7
[2023-06-29 21:47] LABS: CLARITY URINE CLEAR (CLEAR); COLOR URINE DARK YELLOW (YELLOW); GLUCOSE URINE NEGATIVE (NEGATIVE); KETONES URINE NEGATIVE (NEGATIVE); LEUKOCYTE ESTERASE URINE TRACE (NEGATIVE); NITRITE URINE NEGATIVE (NEGATIVE); OCCULT BLOOD URINE NEGATIVE (NEGATIVE); PH URINE 5.5 (4.5-8.0); PROTEIN URINE 1+ (NEGATIVE)
[2023-06-29 22:03] LABS: WBC URINE 0-2 /hpf (0-2)
[2023-06-29 22:04] LABS: BACTERIA URINE NONE SEEN; RBC URINE NONE SEEN /hpf (0-2); SQUAMOUS EPITHELIAL CELL URINE RARE /lpf (RARE/1+)
[2023-06-30 07:39] LABS: BASOPHILS % 0.6 % (0.0-2.0); EOSINOPHILS % 1.7 % (0.0-5.0); HEMATOCRIT. 43.7 % (36.0-48.0); HEMOGLOBIN. 14.7 g/dL (12.0-16.0); LYMPHOCYTES % 28.8 % (20.0-50.0); MEAN CORPUSCULAR HEMOGLOBIN 30.3 pg (28.0-32.0); MEAN CORPUSCULAR HGB CONC 33.6 g/dL (31.0-37.0); MEAN CORPUSCULAR VOLUME 90.3 fL (81.0-99.0); MEAN PLATELET VOLUME 10.4 fl (7.4-10.4); MONOCYTES % 11.9 % (2.0-8.0); PLATELET 153 x1000/uL (130-400); RED BLOOD CELL COUNT 4.84 mill/uL (4.2-5.4); RED CELL DISTRIBUTION WIDTH 17.4 % (11.6-14.6); WHITE BLOOD COUNT 5.2 x1000/uL (4.5-11.0)
[2023-06-30 07:56] LABS: CALCIUM 9.4 mg/dL (8.7-10.4)
[2023-06-30 08:00] VITALS: BP 102/67; PULSE 72; RESP 19; TEMP 99.5
[2023-06-30 08:02] LABS: CREATININE 1.1 mg/dL (0.6-1.0)
[2023-06-30 20:00] VITALS: BP 131/92; PULSE 86; RESP 17; TEMP 97.7
[2023-07-01 08:00] VITALS: BP 132/63; PULSE 79; RESP 17; TEMP 97
[2023-07-01 17:20] VITALS: PULSE 80
[2023-07-01 20:00] VITALS: BP 115/83; PULSE 91; RESP 18; TEMP 97.8
[2023-07-02 08:00] VITALS: BP 132/74; PULSE 77; RESP 18; TEMP 97
[2023-07-02 20:00] VITALS: BP 130/97; PULSE 90; RESP 19; TEMP 98.4
[2023-07-03 08:00] VITALS: BP 139/68; PULSE 62; RESP 17; TEMP 96.9
[2023-07-03 08:04] VITALS: BP 139/68; PULSE 62; RESP 17; TEMP 98
[2023-07-03 17:25] VITALS: PULSE 78
[2023-07-03] MEDS: DOCUSATE SODIUM SUGAR FREE 100MG/10ML UDC PO PRN (18:41)
[2023-07-03 20:00] VITALS: BP 114/64; PULSE 69; RESP 17; TEMP 97
[2023-07-04 08:00] VITALS: BP 123/85; PULSE 65; RESP 17; TEMP 97.9
[2023-07-04] MEDS: ACETAMINOPHEN 325MG TABLET PO PRN (08:36)
[2023-07-04 20:00] VITALS: BP 118/63; PULSE 81; RESP 18; TEMP 97.9
[2023-07-05 08:00] VITALS: BP 130/87; PULSE 72; RESP 17; TEMP 97.1
[2023-07-05 20:00] VITALS: BP 155/94; PULSE 91; RESP 18; TEMP 98.6
[2023-07-06 08:00] VITALS: BP 116/80; PULSE 53; RESP 19; TEMP 97.9
[2023-07-06 20:00] VITALS: BP 138/56; PULSE 81; RESP 20; TEMP 97.2
[2023-07-07 08:00] VITALS: BP 137/74; PULSE 60; PULSE 85; RESP 17; RESP 18; TEMP 97.3
[2023-07-07 20:00] VITALS: BP 112/46; PULSE 96; RESP 17; TEMP 97.5
[2023-07-08 08:00] VITALS: BP 140/72; PULSE 72; RESP 20; TEMP 97.4
[2023-07-08 20:00] VITALS: BP 140/62; PULSE 74; RESP 20; TEMP 98.1
[2023-07-09 08:00] VITALS: BP 126/72; PULSE 80; RESP 20; TEMP 97.7
[2023-07-09 20:00] VITALS: BP 135/79; PULSE 93; RESP 18; TEMP 97.7
[2023-07-10 08:00] VITALS: BP 129/64; PULSE 78; RESP 19; TEMP 98.6
[2023-07-10 20:00] VITALS: BP 156/90; PULSE 68; RESP 18; TEMP 98.7
[2023-07-11 08:00] VITALS: BP 125/77; PULSE 83; RESP 18; TEMP 97.3
[2023-07-11 19:42] VITALS: BP 138/49; PULSE 56; RESP 20; TEMP 97.2
[2023-07-11] MEDS: CARVEDILOL 3.125 MG TABLET PO SCH (20:53)
[2023-07-12 08:00] VITALS: BP 120/70; PULSE 73; RESP 18; TEMP 97.5
[2023-07-12] MEDS ORDERED: MAGNESIUM HYDROXIDE 400MG/5ML 30ML UDC PO PRN (17:00)
[2023-07-12] MEDS: POLYETHYLENE GLYCOL 3350 (17GM) 1 DOSE PACK PO SCH (17:06)
[2023-07-12 19:58] VITALS: BP 140/68; PULSE 61; RESP 19; TEMP 97.6
[2023-07-12] MEDS: SENNOSIDES/DOCUSATE SOD 8.6/50MG TABLET PO SCH (21:22)
[2023-07-13 07:57] VITALS: BP 141/78; PULSE 71; RESP 17; TEMP 97.6
[2023-07-13 20:00] VITALS: BP 137/79; PULSE 97; RESP 18; TEMP 98.2
[2023-07-14 08:00] VITALS: BP 135/88; PULSE 89; RESP 17; TEMP 97.2
[2023-07-14 20:00] VITALS: BP 136/61; PULSE 59; TEMP 98.5
[2023-07-15 08:00] VITALS: BP 133/71; PULSE 73; RESP 19; TEMP 97.9
[2023-07-15 20:00] VITALS: BP 142/112; PULSE 73; RESP 17; TEMP 97.6
[2023-07-16 08:00] VITALS: BP 103/41; PULSE 77; RESP 17; TEMP 98.1
[2023-07-16 20:00] VITALS: BP 130/74; PULSE 87; RESP 18; TEMP 97.7
[2023-07-17 08:00] VITALS: BP 121/79; PULSE 91; RESP 18; TEMP 97.8
[2023-07-17] MEDS ORDERED: MENTHOL/LANOLIN/CALAMINE/ZN OX OINT 71GM TOP PRN (14:00)
[2023-07-17 20:00] VITALS: BP 148/93; PULSE 78; RESP 18; TEMP 97.9
[2023-07-18 08:00] VITALS: BP 148/80; PULSE 65; RESP 20; TEMP 97.8
[2023-07-18 16:59] LABS: BASOPHILS % 0.3 % (0.0-2.0); EOSINOPHILS % 0.8 % (0.0-5.0); HEMATOCRIT. 40.9 % (36.0-48.0); HEMOGLOBIN. 13.3 g/dL (12.0-16.0); LYMPHOCYTES % 25.5 % (20.0-50.0); MEAN CORPUSCULAR HGB CONC 32.6 g/dL (31.0-37.0); MEAN CORPUSCULAR VOLUME 92.1 fL (81.0-99.0); MEAN PLATELET VOLUME 9.8 fl (7.4-10.4); MONOCYTES % 11.9 % (2.0-8.0); NEUTROPHILS % 61.5 % (40.0-76.0); PLATELET 170 x1000/uL (130-400); RED BLOOD CELL COUNT 4.44 mill/uL (4.2-5.4); RED CELL DISTRIBUTION WIDTH 17.3 % (11.6-14.6); WHITE BLOOD COUNT 5.6 x1000/uL (4.5-11.0)
[2023-07-18 17:17] LABS: POTASSIUM 4.5 mEq/L (3.5-5.1)
[2023-07-18 17:19] LABS: CALCIUM 9.5 mg/dL (8.7-10.4)
[2023-07-18 18:15] LABS: CREATININE 1.5 mg/dL (0.6-1.0)
[2023-07-18 20:00] VITALS: BP 140/93; PULSE 84; RESP 20; TEMP 97.4
[2023-07-19 08:00] VITALS: BP 107/60; PULSE 51; RESP 17; TEMP 97.9
[2023-07-19 20:00] VITALS: BP 124/58; PULSE 51; RESP 20; TEMP 97.1
[2023-07-20 08:00] VITALS: BP 132/81; PULSE 71; RESP 18; TEMP 97.2
[2023-07-20] MEDS ORDERED: ASPI-1160 PO (11:13)
[2023-07-20] MEDS ORDERED: SENN1TAB35 PO (11:13)
[2023-07-20] MEDS ORDERED: MENT71OI TOP (11:13)
[2023-07-20] MEDS ORDERED: COR3 PO (11:13)
[2023-07-20] MEDS ORDERED: POLY17PO43 PO (11:13)
[2023-07-20] MEDS ORDERED: FAMO20TA8 PO (11:13)
[2023-07-20] MEDS ORDERED: ALLO100T PO (11:13)
[2023-07-20 12:46] VITALS: BP 132/61; PULSE 88; TEMP 97.2; O2SAT 95
[2023-07-22] MEDS ORDERED: FAMOTIDINE 20MG TABLET PO SCH (09:00)
== END 2023-07-20 18:30 | DRG 64 ==
PROVIDERS: ADMIT Psychiatry & Neurology Neurology; ATTEND Internal Medicine
DX: I63.9 Cerebral infarction, unspecified (principal); G93.41 Metabolic encephalopathy; I21.4 Non-ST elevation (NSTEMI) myocardial infarction; I42.9 Cardiomyopathy, unspecified; N17.9 Acute kidney failure, unspecified; I13.0 Hypertensive heart and chronic kidney disease with heart failure and stage 1 through stage 4 chronic kidney disease, or unspecified chronic kidney disease; I66.21 Occlusion and stenosis of right posterior cerebral artery; K21.9 Gastro-esophageal reflux disease without esophagitis; F01.50 Vascular dementia, unspecified severity, without behavioral disturbance, psychotic disturbance, mood disturbance, and anxiety; I48.91 Unspecified atrial fibrillation; N18.30 Chronic kidney disease, stage 3 unspecified; R32 Unspecified urinary incontinence; I50.9 Heart failure, unspecified; I25.10 Atherosclerotic heart disease of native coronary artery without angina pectoris; Z92.3 Personal history of irradiation; Z92.21 Personal history of antineoplastic chemotherapy; Z91.81 History of falling; Z88.0 Allergy status to penicillin; Z86.73 Personal history of transient ischemic attack (TIA), and cerebral infarction without residual deficits; Z74.01 Bed confinement status; Z85.3 Personal history of malignant neoplasm of breast; Z79.01 Long term (current) use of anticoagulants
CPT/HCPCS: 36415; 80048; 80053; 80162; 81003; 85025; 92523; 92610; 97110; 97112; 97116; 97150; 97162; 97166; 97530; 97535; 97542; A6261